=== PATIENT | female | born 1965 | race African-American/Black ===

== ENCOUNTER 2016-06-24 10:37 | Emergency (ER) | payer OTHER ==
[2016-06-24 10:43] VITALS: BMI 39.1
--- NOTE | 2016-06-24 10:47 | PDOC ---
History of Present Illness - General History Source: EMS, Old Records Exam Limitations: No Limitations - History of Present Illness Initial Comments: 06/24/16 10:49 The patient is a 50-year-old woman with a significant past medical history of seizures (on Lamictal and Depakote) who presents to the emergency department via EMS for further evaluation status post witnessed seizure event this morning. As per EMS, the patient had a witnessed seizure at work. Patient was noted to be hypertensive upon ER arrival (142/112). No tongue biting, bowel/bladder incontinence or head injury, as per EMS. Patient had a similar episode on 06/04/2015, for which she was evaluated, Head CT was (-). It appeared that at that time, the patient had several missed Neurological appointments and for which he Depakote was increased to 750 mg BID , however the patient was still taking the previous dosing. Allergies: Levetiracetam. Oxycodone. Penicillin. IV Contrast. Past Surgical History: Cardiac surgery x2. Social History: Former smoker. She denies ETOH and recreational drug use. Primary Care Physician: Dr. Aurora Willoughby Neurologist: Dr. Latonya Taylor [phone] (Affiliated with [facility]) <Umu Piña - Last Filed: 06/24/16 18:00> <Alexis Cain - Last Filed: 06/24/16 21:56> - General Chief Complaint: Seizure Stated Complaint: Seizure Time Seen by Provider: 06/24/16 10:47 Past History <Umu Piña - Last Filed: 06/24/16 18:00> - Past Medical History Diabetes: No HTN: No Kidney Stones: Yes Seizures: Yes - Surgical History Cardiac Surgery: Yes (x2) - Immunization History Immunization Up to Date: Yes - Psycho/Social/Smoking Cessation Hx Anxiety: No Suicidal Ideation: No Smoking Status: No Smoking History: Former smoker Have you smoked in the past 12 months: No Number of Cigarettes Smoked Daily: 0 Information on smoking cessation initiated: No Hx Alcohol Use: No Drug/Substance Use Hx: No Substance Use Type: None <Alexis Cain - Last Filed: 06/24/16 21:56> - Past Medical History Allergies/Adverse Reactions: Allergies Allergy/AdvReac Type Severity Reaction Status Date / Time levetiracetam [From Keppra] Allergy Verified 06/24/16 11:59 oxycodone HCl [From Percocet] Allergy Itching Verified 06/24/16 11:59 Penicillins Allergy Verified 06/24/16 11:59 iv contrast Allergy Hives Uncoded 06/24/16 11:59 Home Medications: Ambulatory Orders Lamotrigine [Lamictal] 250 mg PO BID 06/07/15 Lacosamide [Vimpat -] 150 mg PO BID 06/24/16 Review of Systems - Review of Systems Able to Perform ROS?: Yes Comments:: 06/24/16 10:49 GENERAL/CONSTITUTIONAL: No fever or chills. No weakness. NEUROLOGIC: Yes: +Witnessed seizure. No headache, vertigo, or change in strength /sensation. <Umu Piña - Last Filed: 06/24/16 18:00> *Physical Exam - Vital Signs Last Vital Signs Temp Pulse Resp BP Pulse Ox 98.7 F 78 22 142/112 98 06/24/16 10:41 06/24/16 10:41 06/24/16 10:41 06/24/16 10:41 06/24/16 10:41 - Physical Exam Comments: 06/24/16 10:50 GENERAL: Awake, alert, and fully oriented, in no acute distress HEAD: No signs of trauma EYES: PERRLA, EOMI, sclera anicteric, conjunctiva clear ENT: Auricles normal inspection, hearing grossly normal, nares patent, oropharynx clear without exudates. Moist mucosa NECK: Normal ROM, supple, no lymphadenopathy, JVD, or masses LUNGS: Breath sounds equal, clear to auscultation bilaterally. No wheezes, and no crackles HEART: Regular rate and rhythm, normal S1 and S2, no murmurs, rubs or gallops ABDOMEN: Soft, nontender, normoactive bowel sounds. No guarding, no rebound. No masses EXTREMITIES: Normal range of motion, no edema. No clubbing or cyanosis. No cords, erythema, or tenderness NEUROLOGICAL: Cranial nerves II through XII grossly intact. Normal speech <Umu Piña - Last Filed: 06/24/16 18:00> - Vital Signs Last Vital Signs Temp Pulse Resp BP Pulse Ox 98.7 F 78 22 142/112 98 06/24/16 10:41 06/24/16 10:41 06/24/16 10:41 06/24/16 10:41 06/24/16 10:41 <Alexis Cain - Last Filed: 06/24/16 21:56> ED Treatment Course - LABORATORY CBC & Chemistry Diagram: 06/24/16 12:18 06/24/16 12:18 - RADIOLOGY Radiograph Interpretation: 06/24/16 13:54 EXAM: RAD/CHEST X-RAY PORTABLE IMPRESSION: Comparison study May 19, 2014. The lungs are well aerated. No evidence of vascular congestion, pleural effusion, or pneumothorax. No widening of the superior mediastinum. The heart is borderline enlarged. Intact visualized osseous structures. Right cervical rib is noted. No glenohumeral joint dislocation is seen. EXAM: CT/HEAD CT WITHOUT CONTRAST IMPRESSION: Comparison study: CT brain January 21, 2016. Findings. Serial axial images of the brain were obtained from foramen magnum to the cranial vertex without intravenous contrast. The study was supplemented with computer- generated coronal and sagittal reconstruction images. Legislative Director image was reviewed. There is no evidence of acute subarachnoid hemorrhage, acute intra-axial or extra-axial fluid collection consistent with subdural or epidural hematoma. No mass effect, midline shift, acute territorial ischemic changes, herniation or edema is present. Normal celestin matter white matter differentiation. Normal CSF spaces. The cortical sulci, sylvian fissures, perimesencephalic cisterns are not effaced. No evidence of tonsillar ectopia. Examination of the bone windows show no fracture. Nonspecific mucosal changes are observed in few right ethmoid air cells. Symmetrical ocular globes. Status post cataract surgeries. Unremarkable retro-orbital soft tissues. <Umu Piña - Last Filed: 06/24/16 18:00> - LABORATORY CBC & Chemistry Diagram: 06/24/16 12:18 06/24/16 12:18 <Alexis Cain - Last Filed: 06/24/16 21:56> Medical Decision Making - Medical Decision Making 06/24/16 15:08 A call was placed to patient's Primary Care Physician, Dr. Aurora Willoughby at [phone]. Awaiting call back. 06/24/16 16:50 A second call was placed to patient's Primary Care Physician, Dr. Aurora Willoughby at [phone]. Awaiting call back. 06/24/16 16:51 A call was placed to patient's Neurologist, Dr. Latonya Taylor at [phone]. Awaiting call back. 06/24/16 17:11 A second call was placed to patient's Neurologist, Dr. Latonya Taylor at [phone]. Awaiting call back. 06/24/16 16:17 A third call was placed to patient's Primary Care Physician, Dr. Aurora Willoughby at [phone]. Awaiting call back. 06/24/16 16:35 Call back from Neurologist, Dr. Robles affiliated with [facility]. Case was discussed. Patient will be transferred to [facility] on an Epilepsy Monitoring Unit. 06/24/16 18:00 A call was placed to [facility] at ( ). <Umu Piña - Last Filed: 06/24/16 18:00> *DC/Admit/Observation/Transfer - Attestations Scribe Attestion: 06/24/16 11:02 Documentation prepared by Umu Piña, acting as medical records secretary for Alexis Cain MD. <Umu Piña - Last Filed: 06/24/16 18:00> - Discharge Dispostion Admit: No <Alexis Cain - Last Filed: 06/24/16 21:56> Diagnosis at time of Disposition: Intractable seizure disorder - Discharge Dispostion Disposition: TRANSFER ACUTE CARE/OTHER HOSP Condition at time of disposition: Stable - Referrals Referrals: Kali Willoughby MD [Primary Care Provider] -
[2016-06-24] MEDS ORDERED: SODIUM CHLORIDE 500 ML IV STA (10:49)
[2016-06-24] MEDS ORDERED: FOSPHENYTOIN SODIUM 1,000 MG in SODIUM CHLORIDE 100 ML IVPB ONE (10:51)
[2016-06-24 12:26] LABS: BASOPHIL 0.4 % (0-2.0); EOSINOPHIL 0.1 % (0-4.5); MCH 31.4 pg (25.7-33.7); MCHC 33.2 g/dl (32.0-36.0); MEAN CELL VOLUME 94.6 fl (80-96); MEAN PLT VOLUME 7.9 fl (7.5-11.1); NEUTROPHILS 75.5 % (42.8-82.8); PLATELET COUNT 372 K/MM3 (134-434); RDW 13.8 % (11.6-15.6)
[2016-06-24 12:54] LABS: ALBUMIN 3.7 g/dl (3.4-5.0); ALK PHOS 67 U/L (45-117); ANION GAP 9 (8-16); BILIRUBIN,TOTAL 0.3 mg/dL (0.2-1.0); CALCIUM 8.9 mg/dL (8.5-10.1); CO2 29 mmol/L (21-32); CREATININE 0.9 mg/dL (0.55-1.02); GLUCOSE,RANDOM 89 mg/dL (74-106); SGOT/AST 13 U/L (15-37); SGPT/ALT 19 U/L (12-78); TOT PROT 7.4 g/dl (6.4-8.2)
[2016-06-24] MEDS ORDERED: DIVALPROEX SODIUM 500 MG TABLET E.C. PO ONE (13:22)
[2016-06-24] MEDS ORDERED: ACETAMINOPHEN 325 MG TABLET (FP) PO ONE (13:27)
[2016-06-24] MEDS ORDERED: ACETAMINOPHEN 325 MG TABLET (FP) ONE (13:50)
--- NOTE | 2016-06-24 14:00 | EKG ---
Test Reason : Blood Pressure : / mmHG Vent. Rate : 067 BPM Atrial Rate : 067 BPM P-R Int : 174 ms QRS Dur : 086 ms QT Int : 408 ms P-R-T Axes : 052 041 013 degrees QTc Int : 431 ms NORMAL SINUS RHYTHM NORMAL ECG WHEN COMPARED WITH ECG OF 17-NOV-2013 21:28, NO SIGNIFICANT CHANGE WAS FOUND Confirmed by FAUSTINO JEREZ MD ([id number]) on 06/24/2016 1:59:41 PM Referred By: Confirmed By:FAUSTINO JEREZ MD
[2016-06-24 15:26] VITALS: PULSE 68
[2016-06-24] MEDS ORDERED: LACOSAMIDE 50 MG TABLET PO ONE ×2 (21:48→21:56)
[2016-06-25 00:22] VITALS: BP 130/70; TEMP 97.4
== END 2016-06-25 01:50 | disposition short-term general hospital (02) ==
LOC: JER 10:37
PROC: 3E033GC Introduction of Other Therapeutic Substance into Peripheral Vein, Percutaneous Approach (ICD-10-PCS; principal; 2016-06-24)
PROC: 3E0337Z Introduction of Electrolytic and Water Balance Substance into Peripheral Vein, Percutaneous Approach (ICD-10-PCS; 2016-06-24)
DX: G40.919 Epilepsy, unspecified, intractable, without status epilepticus (principal); I10 Essential (primary) hypertension; Z87.891 Personal history of nicotine dependence; Z87.442 Personal history of urinary calculi; I51.9 Heart disease, unspecified
CPT/HCPCS: 36415; 70450-TC; 71010-TC; 80053; 80164; 82550; 84703; 85025; 93005; 93010; 99285-25

== ENCOUNTER 2017-11-12 14:28 | Emergency (ER) | payer OTHER ==
[2017-11-12 14:42] VITALS: BP 163/78; PULSE 81; TEMP 98.2; BMI 50.1
--- NOTE | 2017-11-12 14:44 | PDOC ---
Rapid Medical Evaluation Chief Complaint: Edema Time Seen by Provider: 11/12/17 14:40 Medical Evaluation: Allergies Allergy/AdvReac Type Severity Reaction Status Date / Time levetiracetam [From Keppra] Allergy Verified 11/12/17 14:39 oxycodone HCl [From Percocet] Allergy Itching Verified 11/12/17 14:39 Penicillins Allergy Verified 11/12/17 14:39 iv contrast Allergy Hives Uncoded 11/12/17 14:39 11/12/17 14:41 I have performed a brief in-person evaluation of this patient. The patient presents with a chief complaint of: LLE pain x days, no cp, sob, palpitation, f/c. No trauma. H/o seizures, arthritis to hips/knees Pertinent physical exam findings:LLE swollen compared to RLE I have ordered the following: labs and US The patient will proceed to the ED for further evaluation Discharge Disposition - Diagnosis Leg swelling - Referrals - Patient Instructions - Post Discharge Activity
--- NOTE | 2017-11-12 15:28 | PDOC ---
History of Present Illness - General Chief Complaint: Edema Stated Complaint: SWELLING FOOT Time Seen by Provider: 11/12/17 14:40 History Source: Patient Exam Limitations: No Limitations - History of Present Illness Initial Comments: 11/12/17 15:31 This is a 51-year-old woman past medical history of seizures and osteoarthritis who presents emergency Department with left lower extremity swelling intermittent over the past 5 days. Patient states at times her leg swells progressively and becomes reddened but then spontaneously resolves. She states when the swelling comes she experiences pain which is localized to her calf. She denies any fevers, chills, shortness of breath, chest pain, dizziness. Past History - Past Medical History Allergies/Adverse Reactions: Allergies Allergy/AdvReac Type Severity Reaction Status Date / Time levetiracetam [From Keppra] Allergy Verified 11/12/17 14:39 oxycodone HCl [From Percocet] Allergy Itching Verified 11/12/17 14:39 Penicillins Allergy Verified 11/12/17 14:39 iv contrast Allergy Hives Uncoded 11/12/17 14:39 Home Medications: Ambulatory Orders Lamotrigine [Lamictal] 250 mg PO BID 06/07/15 Lacosamide [Vimpat -] 150 mg PO BID 06/24/16 LORazepam [Ativan] 1 mg PO DAILY PRN #5 tablet MDD 2 08/20/17 COPD: No Diabetes: No HTN: No Kidney Stones: Yes Seizures: Yes - Surgical History Cardiac Surgery: Yes (x2) Neurologic Surgery: (neuropace) - Immunization History Immunization Up to Date: Yes - Suicide/Smoking/Psychosocial Hx Smoking Status: No Smoking History: Never smoked Have you smoked in the past 12 months: No Number of Cigarettes Smoked Daily: 0 Information on smoking cessation initiated: No Hx Alcohol Use: No Drug/Substance Use Hx: No Substance Use Type: None Review of Systems - Review of Systems Able to Perform ROS?: Yes Is the patient limited Croatian proficient: No Constitutional: No: Symptoms Reported HEENTM: No: Symptoms Reported Respiratory: No: Symptoms reported Cardiac (ROS): Yes: See HPI ABD/GI: No: Symptoms Reported : No: Symptoms Reported Musculoskeletal: No: Symptoms Reported Integumentary: No: Symptoms Reported Neurological: No: Symptoms reported Endocrine: No: Symptoms Reported Hematologic/Lymphatic: No: Symptoms Reported *Physical Exam - Vital Signs Last Vital Signs Temp Pulse Resp BP Pulse Ox 98.2 F 81 18 163/78 99 11/12/17 14:39 11/12/17 14:39 11/12/17 14:39 11/12/17 14:39 11/12/17 14:39 - Physical Exam General Appearance: Yes: Appropriately Dressed. No: Apparent Distress Respiratory/Chest: positive: Lungs Clear, Normal Breath Sounds. negative: Respiratory Distress, Accessory Muscle Use Cardiovascular: positive: Regular Rhythm, Regular Rate, Edema (Dependent left lower extremity). negative: Murmur Vascular Pulses: Dorsalis-Pedis (R): 2+, Doralis-Pedis (L): 2+ Gastrointestinal/Abdominal: positive: Normal Bowel Sounds, Soft. negative: Tender Musculoskeletal: positive: Normal Inspection. negative: CVA Tenderness Extremity: positive: Pedal Edema (dependant left lower exrtemity) Integumentary: positive: Normal Color, Dry, Warm Neurologic: positive: Alert, Motor Strength 5/5 Medical Decision Making - Medical Decision Making 11/12/17 15:34 A/P: 51-year-old woman with atraumatic intermittent left lower extremity swelling for 5 days Dependent edema noted in the left lower extremity. 2+ dorsalis pedis pulses present bilaterally No calf tenderness or cords present Negative Homans sign Ultrasound, reassess Duplex Dopplers as read by Dr. Scruggs: No DVT is identified involving the left leg. There is no popliteal cyst. No obvious superficial thrombophlebitis is noted. I discussed the physical exam findings, ancillary test results and final diagnoses with the patient. I answered all of the patient's questions. The patient was satisfied with the care received and felt comfortable with the discharge plan and treatment plan. The patient will call her doctor within 96 hours to arrange follow-up and will return to the Emergency Department with any new, persistent or worsening symptoms. *DC/Admit/Observation/Transfer Diagnosis at time of Disposition: Dependent edema - Discharge Dispostion Disposition: HOME Condition at time of disposition: Stable Decision to Admit order: No - Referrals Referrals: Kali Willoughby MD [Primary Care Provider] - - Patient Instructions Additional Instructions: Keep affected leg elevated as much as possible. Make an appointment with your primary doctor for reevaluation within the next 7 days. Return to emergency department for worsening pain, fevers, chills, numbness or tingling to toes, discoloration of your toes or any other concerns. - Post Discharge Activity Forms/Work/School Notes: Back to Work
== END 2017-11-12 15:53 | disposition home or self-care (01) ==
LOC: JERFT 14:28
DX: R60.9 Edema, unspecified (principal); Z86.69 Personal history of other diseases of the nervous system and sense organs; M19.90 Unspecified osteoarthritis, unspecified site
CPT/HCPCS: 93971-TC; 99281-25

== ENCOUNTER 2017-12-11 05:45 | Emergency (ER) | payer OTHER ==
[2017-12-11 06:01] VITALS: BMI 49.9
[2017-12-11] MEDS ORDERED: SODIUM CHLORIDE 1,000 ML IV STA (06:04)
--- NOTE | 2017-12-11 06:11 | PDOC ---
History of Present Illness - General Chief Complaint: Pain Stated Complaint: SEIZURES Time Seen by Provider: 12/11/17 05:54 History Source: Patient Exam Limitations: Clinical Condition - History of Present Illness Initial Comments: 12/11/17 06:06 Patient is a 52F with history of seizures and psychogenic non-epileptic seizure here today complaining of a seizure. She is unsure of what happen, but her family reports to EMS that she had multiple "mini-seizures" today involving acting strangely, jerking arm movements. Family states that she takes lamictal, vimpat and has neuropace implant. EMS reports no tongue biting. Patient does have urinary incontinence. Patient gives fragmentary history but does endorse medication compliance. She endorses an associated headache. Neurologist is Latonya Taylor Past History - Past Medical History Allergies/Adverse Reactions: Allergies Allergy/AdvReac Type Severity Reaction Status Date / Time levetiracetam [From Keppra] Allergy Verified 12/11/17 05:57 oxycodone HCl [From Percocet] Allergy Itching Verified 12/11/17 05:57 Penicillins Allergy Verified 12/11/17 05:57 iv contrast Allergy Hives Uncoded 11/12/17 14:39 Home Medications: Ambulatory Orders Lamotrigine [Lamictal] 250 mg PO BID 06/07/15 Lacosamide [Vimpat -] 150 mg PO BID 06/24/16 LORazepam [Ativan] 1 mg PO DAILY PRN #5 tablet MDD 2 08/20/17 COPD: No Diabetes: No HTN: No Kidney Stones: Yes Seizures: Yes (Epileptic) - Surgical History Cardiac Surgery: Yes (x 2) Neurologic Surgery: Yes (neuropace ([place])) - Immunization History Immunization Up to Date: Yes - Suicide/Smoking/Psychosocial Hx Smoking Status: No Smoking History: Never smoked Have you smoked in the past 12 months: No Number of Cigarettes Smoked Daily: 0 Information on smoking cessation initiated: No Hx Alcohol Use: No Drug/Substance Use Hx: No Substance Use Type: None Review of Systems - Review of Systems Comments:: 12/11/17 06:15 GENERAL/CONSTITUTIONAL: No fever or chills. No weakness. HEAD, EYES, EARS, NOSE AND THROAT: No change in vision. No sore throat. CARDIOVASCULAR: No chest pain or shortness of breath RESPIRATORY: No cough, wheezing, or hemoptysis. GASTROINTESTINAL: No nausea, vomiting, diarrhea or constipation. GENITOURINARY: No dysuria, frequency, or change in urination. MUSCULOSKELETAL: No joint or muscle swelling or pain. No neck or back pain. SKIN: No rash NEUROLOGIC: +headache. No vertigo or change in strength/sensation. ENDOCRINE: No increased thirst. No abnormal weight change HEMATOLOGIC/LYMPHATIC: No anemia, easy bleeding, or history of blood clots. ALLERGIC/IMMUNOLOGIC: No hives or skin allergy. *Physical Exam - Vital Signs Last Vital Signs Temp Pulse Resp BP Pulse Ox 98.4 F 78 20 136/120 98 12/11/17 05:57 12/11/17 05:57 12/11/17 05:57 12/11/17 05:57 12/11/17 05:57 - Physical Exam Comments: 12/11/17 06:21 GENERAL: Awake, alert, and fully oriented HEAD: No signs of trauma, normocephalic, atraumatic EYES: PERRLA, EOMI, sclera anicteric, conjunctiva clear ENT: Auricles normal inspection, hearing grossly normal, nares patent, oropharynx clear without exudates. Moist mucosa NECK: Normal ROM, supple, no lymphadenopathy, JVD, or masses LUNGS: No distress, speaks full sentences, clear to auscultation bilaterally HEART: Regular rate and rhythm, normal S1 and S2, no murmurs, rubs or gallops, peripheral pulses normal and equal bilaterally. ABDOMEN: Soft, nontender, normoactive bowel sounds. No guarding, no rebound. No masses EXTREMITIES: Normal inspection, Normal range of motion, no edema. No clubbing or cyanosis. NEUROLOGICAL: Cranial nerves II through XII grossly intact. Normal speech, no focal sensorimotor deficits SKIN: Warm, Dry, normal turgor, no rashes or lesions noted. 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 Tearful on exam. Vital signs normal and stable. Normal neuro exam. Will treat with 2mg of ativan. Will evaluate with cbc, cmp. Will sign out to day team. 12/11/17 06:34 EKG shows normal sinus rhythm with rate of 71. No st elevations/depressions. Normal t wave inversions. Normal intervals. Normal axis. 12/11/17 07:[address] Vuong. *DC/Admit/Observation/Transfer Diagnosis at time of Disposition: Seizure - Discharge Dispostion Condition at time of disposition: Stable - Referrals - Patient Instructions - Post Discharge Activity
[2017-12-11] MEDS ORDERED: LORazepam 2 MG/ML SDV VIAL ONE (06:15)
--- NOTE | 2017-12-11 06:19 | PDOC ---
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 Frequent seizures, states last episode of seizures was approx 1 month ago. Pt is tearful and upset, just states that she "doesn't feel well." - labs - ekg - cxr - ativan - reeval. <Cary Jackson - Last Filed: 12/11/17 06:16> - HPI HPI: 12/11/17 07:12 Patient is a 52 year old female with a significant past medical history of seizures and psychogenic non-epileptic seizure, who presents to the ED with complaints of seizure that occurs just prior to ED arrival. As per EMS patient was unaware of what happened, stating her family reported she had multiple mini seizures. EMS reports patient family stated patient is currently taking vimpat, lamictal and has a neuropace implant. Patient reports experiencing associated anxiety, nervousness, head pain and bilateral leg. She reports feeling as if she is going to have another seizure any minute. Denies chest pain, Sob. Denies nausea, vomiting. Denies contact with sick individuals, out of state travelling. Denies head trauma. Denies diarrhea, constipation. Denies any other symptoms. Allergies: levetiracetam, oxycodone HCl,Penicillins ,iv contrast Social history: No smoking. No alcohol. No illicit drugs Surgical history: neuropace ([place]). PMD: None - Physicial Exam PE: 12/11/17 07:12 General Physical Exam: NAD EOMI, NU MMM, OP WNL NCAT, no midline cervical tenderness RRR, nl s1/s2, no m/r/g CTABL, no w/r/r Soft, NTND No edema, WWP, no rash Neuro grossly intact, gait WNL, moving all 4 A&O x 3, mood/affect WNL. <Ted Miramontes - Last Filed: 12/11/17 07:12>
--- NOTE | 2017-12-11 07:03 | PDOC ---
*Physical Exam - Vital Signs Last Vital Signs Temp Pulse Resp BP Pulse Ox 98.4 F 78 20 136/120 98 12/11/17 05:57 12/11/17 05:57 12/11/17 05:57 12/11/17 05:57 12/11/17 05:57 12/11/17 07:01 Patient's care endorsed to me by Dr. Hendrix at the end of his shift. Patient is a 52 YOF with h/o seizures and pseudoseizures, EMS reports patient acting strangely on scene, family reported small jerking movements of arms, acting altered. Had urinary incontinence. Here she was tearful and upset, given 2 mg Ativan. Sees a neurologist at [facility]. States she is adherent to meds, also has neuro paced implant. Pending labs and reassessment then may be able to go home. ED Treatment Course - LABORATORY CBC & Chemistry Diagram: 12/11/17 06:20 12/11/17 06:20 - Medications Given in the ED: ED Medications Discontinued Medications Generic Name Dose Route Start Last Admin Trade Name Javier PRN Reason Stop Dose Admin Lorazepam 2 mg 12/11/17 06:09 12/11/17 06:33 Ativan Injection - IVPUSH 12/11/17 06:10 2 mg ONCE ONE Administration Medical Decision Making - Medical Decision Making 12/11/17 08:43 Patient feels much better, states only symptom now is she is tired. She will be able to f/u with her neurology team at [facility] in 3 days. She requests 3 days of Lamictal 1 mg as she has run out. 1 week Lamictal is E-Rx to patient's pharmacy. She is given 3 days off work. Taxi is called for the patient. Return precautions discussed. *DC/Admit/Observation/Transfer Diagnosis at time of Disposition: Seizure Qualifiers: Convulsion type: unspecified Qualified Code(s): R56.9 - Unspecified convulsions - Discharge Dispostion Disposition: HOME Condition at time of disposition: Stable Decision to Admit order: No - Prescriptions Prescriptions: Lamotrigine [Lamictal] 200 mg PO DAILY #7 tablet - Referrals Referrals: [facility] [place] [Provider Group] - Patient Instructions Printed Discharge Instructions: DI for Seizure Disorder -- Adult Additional Instructions: You were seen in the ER for an apparent seizure. We did laboratory work and everything appeared normal. After our assessment, we do not believe you are having a medical emergency at this time, and we believe you are safe to go home. Please follow up with your neurology team at [facility] in 3 days, and with you regular PCP doctor in 1-3 days. We are giving you referral information for our primary care clinic in case you need a new provider. Call their clinic as soon as possible, tell them you were seen in the ER, and tell them you need an appointment. Please supervisor compounding and finishing your prescription for Lamictal at your pharmacy and take it as directed. If you have any new or worsening symptoms, especially change in your normal seizures, severe headache, weakness/numbness/tingling of one part of your body, or other symptoms, please come back to the ER at any time (24 hours a day). If you are having severe or life threatening symptoms, please call 911[address] - Post Discharge Activity Forms/Work/School Notes: Back to Work
[2017-12-11 07:10] LABS: HEMATOCRIT 36.1 % (32.4-45.2); HEMOGLOBIN 12.3 GM/dL (10.7-15.3); MCH 31.9 pg (25.7-33.7); MEAN CELL VOLUME 93.7 fl (80-96); MEAN PLT VOLUME 7.9 fl (7.5-11.1); PLATELET COUNT 372 K/MM3 (134-434); RBC 3.85 M/mm3 (3.60-5.2); RDW 13.7 % (11.6-15.6); WHITE BLOOD COUNT 8.1 K/mm3 (4.0-10.0)
[2017-12-11 07:45] LABS: ALBUMIN 3.5 g/dl (3.4-5.0); ANION GAP 7 (8-16); BILIRUBIN,TOTAL 0.2 mg/dL (0.2-1.0); BLOOD UREA NITROGEN 16 mg/dL (7-18); CALCIUM 8.5 mg/dL (8.5-10.1); CHLORIDE 105 mmol/L (98-107); CO2 26 mmol/L (21-32); CREATININE 0.7 mg/dL (0.55-1.02); GLUCOSE,RANDOM 105 mg/dL (74-106); POTASSIUM 4.2 mmol/L (3.5-5.1); SGOT/AST 13 U/L (15-37); SGPT/ALT 19 U/L (12-78); SODIUM 138 mmol/L (136-145); TOT PROT 7.4 g/dl (6.4-8.2)
[2017-12-11 07:46] LABS: ALK PHOS 65 U/L (45-117)
[2017-12-11 09:15] VITALS: BP 141/97; PULSE 74; TEMP 98.6
--- NOTE | 2017-12-13 21:55 | EKG ---
Test Reason : Blood Pressure : / mmHG Vent. Rate : 071 BPM Atrial Rate : 071 BPM P-R Int : 182 ms QRS Dur : 090 ms QT Int : 390 ms P-R-T Axes : 060 052 020 degrees QTc Int : 423 ms NORMAL SINUS RHYTHM POSSIBLE LEFT ATRIAL ENLARGEMENT BORDERLINE ECG WHEN COMPARED WITH ECG OF 24-JUN-2016 11:01, T WAVE INVERSION NOW EVIDENT IN ANTERIOR LEADS Confirmed by DEYA KEBEDE, VIOLET ([id number]) on 12/13/2017 9:54:59 PM Referred By: Confirmed By:VIOLET FALK MD
== END 2017-12-11 09:23 | disposition home or self-care (01) ==
LOC: JER 05:45
PROC: 3E033NZ Introduction of Analgesics, Hypnotics, Sedatives into Peripheral Vein, Percutaneous Approach (ICD-10-PCS; principal; 2017-12-11)
DX: G40.909 Epilepsy, unspecified, not intractable, without status epilepticus (principal)
CPT/HCPCS: 36415; 80053; 83605; 85027; 93005; 93010; 99283-25; J7030

== ENCOUNTER 2018-05-07 02:55 | Inpatient (IN) | payer OTHER ==
--- NOTE | 2018-05-07 02:56 | PDOC ---
Attending Attestation - Resident Resident Name: Shayla Chowdhury - ED Attending Attestation I have performed the following: I have examined & evaluated the patient, The case was reviewed & discussed with the resident, I agree w/resident's findings & plan - HPI HPI: 05/08/18 23:02 Pt comes with breakthrough seizures. - Physicial Exam PE: 05/08/18 23:02 Agree with resident exam - Medical Decision Making 05/07/18 02:59 Pt had a seizure and she is having an aura in the ER. 05/07/18 04:17 Patient Name: KASSIDY TOM THIS IS A PRELIMINARY REPORT FROM [facility] DATE OF SERVICE: 2018-05-07 03:36:48 IMAGES: 143 EXAM: HEAD CT WITHOUT CONTRAST HISTORY: Seizure COMPARISON: None. FINDINGS: Posterior left parietal and left temporal intracranial stimulators are noted with electrodes causing prominent streak artifact. The ventricular system is midline and nondilated. The sulcal pattern is normal for the patient's age. There is no bleed, mass, extra- axial fluid collection or mass effect. No skull fracture or skull lesion is identified. The visualized paranasal sinuses and mastoid air cells are clear. IMPRESSION: No acute pathology. THIS DOCUMENT HAS BEEN ELECTRONICALLY SIGNED 05/08/18 23:02 Admit for evaluation
[2018-05-07 02:59] VITALS: BMI 46.5
[2018-05-07] MEDS ORDERED: LORazepam 2 MG/ML SDV VIAL ONE (02:59)
--- NOTE | 2018-05-07 02:59 | PDOC ---
History of Present Illness - General Chief Complaint: Seizure Stated Complaint: SEIZURE Time Seen by Provider: 05/07/18 02:56 History Source: Patient Exam Limitations: No Limitations - History of Present Illness Initial Comments: 05/07/18 03:42 This is a 52 year old female with a history of epilepsy, grand mal seizures, s/ p neuropace procedure, obesity who was BIBA due to witnessed seizure at home while in bed. EMS states grandson heard a noise and saw grandmother having a seizure. Length of time unknown, no tongue biting, loss of bowel or bladder, bodily injury, head injury, coppola, blurry vision, chest pain, sob, leg swelling. Patients states she has grand mal seizures with aura. She can feel when a seizure is coming on. She is aaox3, feeling tired. Her last seizure was last month. She [place] a neurologist in the city who she follows regularly, medications have not been changed. Patient states she worked a double shift and was tired, which provokes her seizures. PMHx: breast CA, epilepsy Social: denies tobacco /alcohol /drug use Allergies: keppra (rxn agitation?) oxycodone hcl, penicillins Past History - Past Medical History Allergies/Adverse Reactions: Allergies Allergy/AdvReac Type Severity Reaction Status Date / Time levetiracetam [From Keppra] Allergy Verified 05/07/18 02:56 oxycodone HCl [From Percocet] Allergy Itching Verified 05/07/18 02:56 Penicillins Allergy Verified 05/07/18 02:56 iv contrast Allergy Unknown Hives Uncoded 05/07/18 03:28 Home Medications: Ambulatory Orders Lamotrigine [Lamictal] 200 mg PO DAILY 06/07/15 Lacosamide [Vimpat -] 150 mg PO DAILY 06/24/16 LORazepam [Ativan] 0.5 mg PO DAILY #2 tablet MDD 1 12/11/17 Lamotrigine [Lamictal] 200 mg PO DAILY #7 tablet 12/11/17 COPD: No Diabetes: No HTN: No Kidney Stones: Yes Seizures: Yes (Epileptic) - Surgical History Cardiac Surgery: Yes (x 2) Neurologic Surgery: Yes (neuropace ([facility]utz)) - Immunization History Immunization Up to Date: Yes - Suicide/Smoking/Psychosocial Hx Smoking Status: No Smoking History: Never smoked Have you smoked in the past 12 months: No Number of Cigarettes Smoked Daily: 0 Information on smoking cessation initiated: No Hx Alcohol Use: No Drug/Substance Use Hx: No Substance Use Type: None Review of Systems - Review of Systems Able to Perform ROS?: Yes Constitutional: No: Chills, Fever HEENTM: No: Blurred Vision Respiratory: No: Cough, Orthopnea, Shortness of Breath, Productive cough Cardiac (ROS): No: Chest Pain, Edema, Irregular Heart Rate, Lightheadedness, Syncope ABD/GI: No: Abdominal Distended Musculoskeletal: No: Back Pain, Joint Pain Neurological: Yes: Seizure, Weakness. No: Headache, Numbness, Paresthesia Hematologic/Lymphatic: No: Anemia *Physical Exam - Vital Signs Last Vital Signs Temp Pulse Resp BP Pulse Ox 97.7 F 87 18 147/107 H 97 05/07/18 02:57 05/07/18 02:57 05/07/18 02:57 05/07/18 02:57 05/07/18 02:57 - Physical Exam General Appearance: Yes: Other (mild lethargy) Respiratory/Chest: positive: Lungs Clear, Normal Breath Sounds. negative: Accessory Muscle Use Cardiovascular: positive: Regular Rhythm, Regular Rate, S1, S2 Gastrointestinal/Abdominal: positive: Normal Bowel Sounds Musculoskeletal: positive: Normal Inspection Extremity: positive: Pedal Edema (trace b/l), Other (right UE , skin flare of hives around area of turniacte). 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 negative: Sensory Deficit Medical Decision Making - Medical Decision Making 05/07/18 04:04 This is a 52 year old female with a history of epilepsy , s/p neuropace procedure >1year ago, on AE, take medications regularly, who presents with seizure. #seizure -cbc, bmp, ecg -ativan 2mg IM -IV access -load AE -head CT r.o acute pathology #hypertensive: -1x diovan 40mg po -Case discussed with hospitalist admit for observation; 05/07/18 04:15 *DC/Admit/Observation/Transfer Diagnosis at time of Disposition: Seizure - Discharge Dispostion Condition at time of disposition: Fair Decision to Admit order: Yes - Referrals - Patient Instructions - Post Discharge Activity
[2018-05-07] MEDS ORDERED: VALSARTAN 40 MG TABLET (FP) PO ONE (03:40)
[2018-05-07] MEDS ORDERED: VALSARTAN 80 MG TABLET (UD) ONE (03:44)
[2018-05-07] MEDS ORDERED: diphenhydrAMINE HCL 25 MG CAPSULE (FP) PO ONE ×2 (04:39→04:44)
[2018-05-07] MEDS ORDERED: LACTATED RINGERS SOLUTION 1,000 ML IV SCH (04:45)
[2018-05-07 04:51] LABS: BASO % 0.6 % (0-2.0); EOS % 0.4 % (0-4.5); HEMATOCRIT 39.4 % (32.4-45.2); LYMPH % 12.1 % (8-40); MEAN CELL VOLUME 94.1 fl (80-96); MEAN PLT VOLUME 8.1 fl (7.5-11.1); MONO % 7.3 % (3.8-10.2); NEUT % 79.6 % (42.8-82.8); PLATELET COUNT 405 K/MM3 (134-434); RBC 4.19 M/mm3 (3.60-5.2); RDW 13.6 % (11.6-15.6); WHITE BLOOD COUNT 9.4 K/mm3 (4.0-10.0)
--- NOTE | 2018-05-07 05:31 | HP ---
CHIEF COMPLAINT: seizure HISTORY OF PRESENT ILLNESS: 52 year old female with a history of epilepsy, multiple grand mal seizures, and neuropace procedure was brought to the hospital by EMS for unwitnessed seizure in bed and urinary incontinence during the event. Patient's grandson noticed the seizure and was able to contact EMS. Patient reports mild headache but otherwise denies complaints. Reports that she knew that the seizure was coming on and remembers waking up and feeling confused, but does not recall the actual event. States that she was held at work for a second shift, which she says triggers her seizures. Reports that lack of sleep usually triggers seizures for her. Reports that she started to have seizures in 2010 and has had 10-15 seizures every year since. She has had a neuropace stimulator implanted into her brain at [facility] and is followed by neurologist Dr. Nieves ER course was notable for: (1) EKG NSR rate 80, qtc 452 (2) CXR normal (3) Recent Travel: denies PAST MEDICAL HISTORY: epilepsy PAST SURGICAL HISTORY: neural stimulator, 2 c sections Social History: Smoking: No smoking Alcohol: No alcohol use Drugs: No drug use Family History: cancer in the family of unknown type Allergies levetiracetam [From Keppra] Allergy (Verified 05/07/18 02:56) oxycodone HCl [From Percocet] Allergy (Verified 05/07/18 02:56) Itching Penicillins Allergy (Verified 05/07/18 02:56) iv contrast Allergy (Unknown, Uncoded 05/07/18 03:28) Hives HOME MEDICATIONS: Home Medications Medication Instructions Recorded Lacosamide [Vimpat -] 200 mg PO BID 06/24/16 Lamotrigine [Lamictal] 200 mg PO BID 05/07/18 Lorazepam [Lorazepam Intensol] 2 mg PO DAILY PRN 05/07/18 REVIEW OF SYSTEMS CONSTITUTIONAL: Absent: fever, chills, diaphoresis, generalized weakness, malaise, loss of appetite, weight change HEENT: Absent: rhinorrhea, nasal congestion, throat pain, throat swelling, difficulty swallowing, mouth swelling, ear pain, eye pain, visual changes CARDIOVASCULAR: Absent: chest pain, syncope, palpitations, irregular heart rate, lightheadedness , peripheral edema RESPIRATORY: Absent: cough, shortness of breath, dyspnea with exertion, orthopnea, wheezing, stridor, hemoptysis GASTROINTESTINAL: Absent: abdominal pain, abdominal distension, nausea, vomiting, diarrhea, constipation, melena, hematochezia GENITOURINARY: Absent: dysuria, frequency, urgency, hesitancy, hematuria, flank pain, genital pain MUSCULOSKELETAL: Absent: myalgia, arthralgia, joint swelling, back pain, neck pain SKIN: Absent: rash, itching, pallor HEMATOLOGIC/IMMUNOLOGIC: Absent: easy bleeding, easy bruising, lymphadenopathy, frequent infections ENDOCRINE: Absent: unexplained weight gain, unexplained weight loss, heat intolerance, cold intolerance NEUROLOGIC: seizure, Absent: headache, focal weakness or paresthesias, dizziness, unsteady gait, mental status changes, bladder or bowel incontinence PSYCHIATRIC: Absent: anxiety, depression, suicidal or homicidal ideation, hallucinations. PHYSICAL EXAMINATION Vital Signs - 24 hr 05/07/18 05/07/18 02:57 03:36 Temperature 97.7 F Pulse Rate 87 Respiratory 18 Rate Blood Pressure 147/107 H O2 Sat by Pulse 97 99 Oximetry (%) GENERAL: A&Ox3, no acute distress EYES: PERRLA, EOMI ENT: Moist mucus membranes NECK: No JVD LUNGS: CTA, no wheezes HEART: RRR, no murmurs ABDOMEN: Obese, Soft, nontender, BS present MUSCULOSKELETAL: No CVA Tenderness EXTREMITIES: 2+ pulses, no edema. maculopapular rash noted on LUE around 6x8cm on anterior aspet of forearm NEUROLOGICAL: Cranial nerves II-XII intact. Motor strength 5/5, sensation intact, reflexes 2/4 b/l upper and lower extremities Laboratory Results - last 24 hr 05/07/18 05/07/18 04:25 04:25 WBC 9.4 RBC 4.19 Hgb 13.0 Hct 39.4 MCV 94.1 MCH 31.0 MCHC 33.0 RDW 13.6 Plt Count 405 MPV 8.1 Absolute Neuts (auto) 7.5 Neutrophils % 79.6 Lymphocytes % 12.1 D Monocytes % 7.3 Eosinophils % 0.4 D Basophils % 0.6 Nucleated RBC % 0 Lactic Acid 1.1 ASSESSMENT/PLAN: 52 year old female with a history of epilepsy, multiple grand mal seizures, and neuropace procedure was brought to the hospital by EMS for unwitnessed seizure in bed. #Seizure: recurrent, home neurologist is Dr. Nieves -head CT does not preliminarily reveal any acute abnormality or stroke, pending final read -CXR negative -continue home lamictal 200 BID -continue home vimpat 200 BID -patient allergic to keppra, started fosphenytoin 1000 -neurology Dr. Blake consulted #Hypertension: patient denies being on other medications -monitor BP in AM #FEN -LR @ 83cc/hr 1 bag -lytes normal -regular diet #Prophylaxis -lovenox #Disposition -admit obs Visit type - Emergency Visit Emergency Visit: Yes ED Registration Date: 05/07/18 Care time: The patient presented to the Emergency Department on the above date and was hospitalized for further evaluation of their emergent condition. - New Patient This patient is new to me today: Yes Date on this admission: 05/07/18 - Critical Care Critical Care patient: No
[2018-05-07 05:36] LABS: ALBUMIN 3.5 g/dl (3.4-5.0); ALK PHOS 72 U/L (45-117); ANION GAP 10 MMOL/L (8-16); BILIRUBIN,TOTAL 0.4 mg/dL (0.2-1); BLOOD UREA NITROGEN 15 mg/dL (7-18); CALCIUM 8.7 mg/dL (8.5-10.1); CHLORIDE 106 mmol/L (98-107); CO2 24 mmol/L (21-32); CREATININE 0.7 mg/dL (0.55-1.3); GLUCOSE,RANDOM 92 mg/dL (74-106); MAGNESIUM 1.9 mg/dL (1.8-2.4); POTASSIUM 4.1 mmol/L (3.5-5.1); SGOT/AST 17 U/L (15-37); SGPT/ALT 19 U/L (13-61); SODIUM 140 mmol/L (136-145)
[2018-05-07] MEDS ORDERED: FOSPHENYTOIN SODIUM 1,000 MG in SODIUM CHLORIDE 100 ML IVPB ONE (05:46)
--- NOTE | 2018-05-07 07:06 | PN ---
Teaching Attending Note Name of Resident: Nino William ATTENDING PHYSICIAN STATEMENT I saw and evaluated the patient. Chart, data, imaging reviewed. I reviewed the resident's note and discussed the case with the resident. I agree with the resident's findings and plan as documented. SUBJECTIVE: 52 year old female with a history of epilepsy, multiple grand mal seizures, and neuro stimulator placement was brought to the hospital by EMS for unwitnessed seizure in bed and urinary incontinence during the event. Patient's grandson noticed the seizure and was able to contact EMS. Patient reports mild headache. Thinks that lack of sleep may have triggered seizure episode. OBJECTIVE: Last Vital Signs Temp Pulse Resp BP Pulse Ox 97.7 F 80 20 138/92 98 05/07/18 02:57 05/07/18 06:12 05/07/18 06:12 05/07/18 06:12 05/07/18 06:12 General- nad, aaox3 heent- atraumatic, NC neck supple cv- s1+S2+ rrr chest clear abd- obese, nt ext- no edema Head CT, CXR- reviewed ASSESSMENT AND PLAN: 52yo woman with breakthrough seizure -observation -1 load 1 g fosphenytoin -restart home AEDs -neuro consult -neuro checks q4hrs -bed rest -check levels of Vimpat and Lamictal -fall precautions heparin sc for dvt ppx
[2018-05-07] MEDS ORDERED: PT OWN MED DRAWER 7, Y5N ONE (10:46)
[2018-05-07] MEDS: LACOSAMIDE 50 MG TABLET PO SCH ×2 (10:50→22:26)
[2018-05-07] MEDS: ENOXAPARIN NA (PORCINE) 40 MG/0.4 ML DISP.SYRIN SQ SCH (10:51)
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
[2018-05-07] MEDS ORDERED: diphenhydrAMINE HCL 25 MG CAPSULE (FP) PO PRN (11:12)
[2018-05-07] MEDS: lamoTRIgine 100 MG TABLET (FP) PO SCH ×2 (11:43→22:52)
--- NOTE | 2018-05-07 12:56 | CON.NEURO ---
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 - Past Surgical History Past Surgical History: Yes: - Alcohol/Substance Use Hx Alcohol Use: No History of Substance Use: reports: None - Smoking History Smoking history: Never smoked Have you smoked in the past 12 months: No Aproximately how many cigarettes per day: 0 - Social History ADL: Independent 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 Home Medications - Allergies Allergies/Adverse Reactions: Allergies Allergy/AdvReac Type Severity Reaction Status Date / Time levetiracetam [From Keppra] Allergy Verified 05/07/18 02:56 oxycodone HCl [From Percocet] Allergy Itching Verified 05/07/18 02:56 Penicillins Allergy Verified 05/07/18 02:56 iv contrast Allergy Unknown Hives Uncoded 05/07/18 03:28 - Home Medications Home Medications: Ambulatory Orders Lacosamide [Vimpat -] 200 mg PO BID 06/24/16 Lamotrigine [Lamictal] 200 mg PO BID 05/07/18 Lorazepam [Lorazepam Intensol] 2 mg PO DAILY PRN 05/07/18 Family Disease History - Family Disease History Family Disease History: CA: Mother (Breast CA) Review of Systems - Review of Systems Constitutional: reports: No Symptoms Eyes: reports: No Symptoms Physical Exam-Neuro Vital Signs: Vital Signs Temperature 98 F 05/07/18 08:57 Pulse Rate 57 L 05/07/18 08:57 Respiratory Rate 18 05/07/18 08:57 Blood Pressure 123/63 05/07/18 08:57 O2 Sat by Pulse Oximetry (%) 98 05/07/18 06:12 Constitutional: Yes: Well Nourished Neck: Yes: WNL Labs: CBC, BMP 05/07/18 04:25 05/07/18 04:25 - Neuro Exam Eyes: Yes: PERRLA Speech: WNL Dominant Hand: Right Cranial Nerves II-XII Intact: Yes Gag: Present DTR's: 1+ Left Bicep, 1+ Right Bicep, 1+ Left Brachioradialis, 1+ Right Brachioradialis Babinski: Absent Response to light touch: Normal Response to pain prick: Normal Response to temperature: Normal Response to vibration: Normal Motor Strength: 3/5: Left Arm, Right Arm, Left Leg, Right Leg Gait: Deferred Imaging - Results Cat Scan: Report Reviewed Problem List - Problems (1) Seizure Assessment/Plan: Complex partial Seizure Not controlled with frequent partial Petit mals and two Antiseizure meds and Neuropace 1. Move to monitored setting 2. seizure precautions 3. Put a call to her neurologist at [place] 4. No Keppra no Dilantin 5. Increase Lamictal to 200-100-200 6. Follow up levels Thank you for the kind referral Code(s): R56.9 - UNSPECIFIED CONVULSIONS
[2018-05-07] MEDS ORDERED: lamoTRIgine 100 MG TABLET (FP) PO ONE (15:00)
--- NOTE | 2018-05-07 15:22 | EKG ---
Test Reason : Blood Pressure : / mmHG Vent. Rate : 080 BPM Atrial Rate : 080 BPM P-R Int : 166 ms QRS Dur : 080 ms QT Int : 392 ms P-R-T Axes : 053 033 027 degrees QTc Int : 452 ms NORMAL SINUS RHYTHM NORMAL ECG WHEN COMPARED WITH ECG OF 11-DEC-2017 06:31, T WAVE INVERSION NO LONGER EVIDENT IN ANTERIOR LEADS Confirmed by Rodolfo Ram ([id number]) on 05/07/2018 3:22:06 PM Referred By: Confirmed By:Rodolfo Ram
[2018-05-07 18:46] LABS: URINE APPEARANCE CLEAR; URINE BILIRUBIN NEGATIVE (<2.0 mg/dL); URINE COLOR YELLOW; URINE GLUCOSE (UA) NEGATIVE (NEGATIVE); URINE KETONE NEGATIVE (NEGATIVE); URINE LEUK ESTERASE TRACE (NEGATIVE); URINE NITRITE NEGATIVE (NEGATIVE); URINE PROTEIN NEGATIVE (NEGATIVE)
[2018-05-07 18:47] LABS: EPI CELLS RARE /HPF (FEW); URINE MUCUS MODERATE
[2018-05-07] MEDS ORDERED: LORazepam 1 MG TABLET PO ONE (20:15)
[2018-05-07] MEDS ORDERED: LORazepam 1 MG TABLET PO PRN (22:44)
--- NOTE | 2018-05-07 22:52 | PN ---
Progress Note (short form) - Note Progress Note: Call by the registered nurse on the telemetric floor that the patient had a partial seizure that develop into right arm shaking. The episode stopped by itself. Patient was given Ativan 2 mg PO times one. I called a registered nurse at 10 PM to check on the patient and was told that she feels better. I again called the primer press operator who connected me to the patients room directly and I spoke to the patient who told me that she still not feeling good. Patient expresses to me that she still feeling Aura. I put an order for additional lorazepam PO and theres a standing those for Iv. I put an order for additional lorazepam PO and there is a standing those for IV. I also started a patient on Zonegram 100 mg daily. .I spoke to the epilepsy clinic with Jonathon and unfortunately a fellow called me Who doesnt know the patients with covering for the attending. Problem List - Problems (1) Seizure Code(s): R56.9 - UNSPECIFIED CONVULSIONS
[2018-05-08 07:24] LABS: BASO % 0.6 % (0-2.0); EOS % 1.4 % (0-4.5); HEMATOCRIT 36.6 % (32.4-45.2); HEMOGLOBIN 11.9 GM/dL (10.7-15.3); LYMPH % 28.1 % (8-40); MCHC 32.6 g/dl (32.0-36.0); MEAN PLT VOLUME 8.2 fl (7.5-11.1); MONO % 9.6 % (3.8-10.2); NEUT % 60.3 % (42.8-82.8); PLATELET COUNT 376 K/MM3 (134-434); RBC 3.85 M/mm3 (3.60-5.2); WHITE BLOOD COUNT 7.4 K/mm3 (4.0-10.0)
[2018-05-08 07:52] LABS: ANION GAP 9 MMOL/L (8-16); BLOOD UREA NITROGEN 11 mg/dL (7-18); CALCIUM 8.6 mg/dL (8.5-10.1); CHLORIDE 104 mmol/L (98-107); CO2 25 mmol/L (21-32); CREATININE 0.7 mg/dL (0.55-1.3); GLUCOSE,RANDOM 78 mg/dL (74-106); SODIUM 138 mmol/L (136-145)
--- NOTE | 2018-05-08 07:58 | PN ---
Physical Exam: SUBJECTIVE: Patient seen and examined at bedside. No overnight events. No new complaints. Continues to have R forearm puritis. 2 seizures yesterday. Denies Auro, CP, HERR, SOB, abdominal pain, nausea or vomiting. OBJECTIVE: Vital Signs Period Temp Pulse Resp BP Sys/Jeronimo Pulse Ox Last 24 Hr 98 F-98.5 F 57-81 15-20 115-154/62-88 100-100 GENERAL: awake alert, NAD EYES: PERRL, EOMI, sclera anicteric, conjunctiva clear. No ptosis. ENT: moist mucous membranes. LUNGS: CTAB no wheezes, no crackles, no accessory muscle use. HEART:RRR, S1, S2 without murmur, rub or gallop. ABDOMEN: Soft, NDNT, NABS, no guarding, no rebound, no hepatosplenomegaly, no masses. EXTREMITIES: 2+ pulses, warm, well-perfused, no edema. NEUROLOGICAL: Cranial nerves II through XII grossly intact. Normal speech, gait not observed. PSYCH: Normal mood, normal affect. SKIN: R forearm with tiny bumps with surrounding erythema, some excoriations Laboratory Results - last 24 hr 05/07/18 05/08/18 05/08/18 16:30 05:30 05:30 WBC 7.4 RBC 3.85 Hgb 11.9 Hct 36.6 MCV 95.0 MCH 31.0 MCHC 32.6 RDW 14.0 Plt Count 376 MPV 8.2 Absolute Neuts (auto) 4.5 Neutrophils % 60.3 D Lymphocytes % 28.1 D Monocytes % 9.6 Eosinophils % 1.4 D Basophils % 0.6 Nucleated RBC % 0 Sodium 138 Potassium 4.0 Chloride 104 Carbon Dioxide 25 Anion Gap 9 BUN 11 Creatinine 0.7 Creat Clearance w eGFR > 60 Random Glucose 78 Calcium 8.6 Urine Color Yellow Urine Appearance Clear Urine pH 5.0 Ur Specific [place] 1.026 Urine Protein Negative Urine Glucose (UA) Negative Urine Ketones Negative Urine Blood Negative Urine Nitrite Negative Urine Bilirubin Negative Urine Urobilinogen 2.0 H Ur Leukocyte Esterase Trace Urine WBC (Auto) 31 Urine RBC (Auto) 4 Ur Epithelial Cells Rare Urine Mucus Moderate Active Medications Generic Name Dose Route Start Last Admin Trade Name Freq PRN Reason Stop Dose Admin Diphenhydramine HCl 25 mg 05/07/18 11:12 Benadryl - PO Q6H PRN FOR ITCHING Enoxaparin Sodium 40 mg 05/07/18 10:00 05/07/18 10:51 Lovenox - SQ 40 mg DAILY MAXWELL Administration Lacosamide 200 mg 05/07/18 10:00 05/07/18 22:26 Vimpat - PO 200 mg BID MAXWELL Administration Lamotrigine 200 mg 05/07/18 10:54 05/07/18 22:52 Lamictal - PO 200 mg BID MAXWELL Administration Lorazepam 2 mg 05/07/18 22:44 Ativan - PO DAILY PRN ANXIETY Zinc Acetate/Diphenhydramine 1 applic 05/07/18 11:15 05/07/18 22:28 Benadryl 2% Cream TP 1 applic BID MAXWELL Administration Zonisamide 100 mg 05/08/18 10:00 Zonegran - PO DAILY MAXWELL ASSESSMENT/PLAN: 52yo F wtih PMH epilepsy s/p nerve stimulator presented after unwitnessed seizure Problem List - Problems (1) Breakthrough seizure Assessment/Plan: 2 tonic-clonic episodes while here, both witnessed. * responded to ativan. * lamictal dose adjusted. * zonisamide started today. * Dr Blake reached out to her neurologist yesterday but was not available. * will attempt likely tomorrow,may require further adjustment (2) Rash Assessment/Plan: appears like insect bites. * some relief with benadryl cream ; will order low dose steroid cream * Benadryl PO PRN. (3) DVT prophylaxis Assessment/Plan: early ambulation. Visit type - Emergency Visit Emergency Visit: Yes ED Registration Date: 05/08/18 Care time: The patient presented to the Emergency Department on the above date and was hospitalized for further evaluation of their emergent condition. - New Patient This patient is new to me today: Yes Date on this admission: 05/08/18 - Critical Care Critical Care patient: No
[2018-05-08] MEDS: ENOXAPARIN NA (PORCINE) 40 MG/0.4 ML DISP.SYRIN SQ SCH (10:36)
[2018-05-08] MEDS: lamoTRIgine 100 MG TABLET (FP) PO SCH ×2 (10:36→21:20)
[2018-05-08] MEDS: LACOSAMIDE 50 MG TABLET PO SCH ×2 (10:37→21:20)
[2018-05-08] MEDS: ZONISAMIDE 100 MG CAPSULE PO SCH (10:39)
--- NOTE | 2018-05-08 11:14 | PN ---
Teaching Attending Note Name of Resident: Marcel Springer ATTENDING PHYSICIAN STATEMENT I saw and evaluated the patient. I reviewed the resident's note and discussed the case with the resident. I agree with the resident's findings and plan as documented. SUBJECTIVE:c/o pruritis of the R forearm. some improvement since yesterday. states she felt her seizure coming on yesterday prior to the 2 episodes yesterday. has no aura at this time. denies CP, SOB, fever, chills, N/V/C/D had 2 tonic-clonic seizures over the past 24H and moved down to [facility] for further monitoring OBJECTIVE: Last Vital Signs Temp Pulse Resp BP Pulse Ox 98.1 F 70 16 115/62 100 05/08/18 06:00 05/08/18 06:00 05/08/18 06:00 05/08/18 06:00 05/08/18 01:33 General NAD CV S1 S2 RRR no murmur/rub/gallop Lungs CTA B/L no wheezing/rales/rhonchi Extremities R forearm with tiny bumps with surrounding erythema, some excoriations. less erythematous than yesterday ASSESSMENT AND PLAN: 52yo F wtih PMH epilepsy s/p nerve stimulator presented after unwitnessed seizure 1. Breakthrough seizure-2 tonic-clonic episodes while here, both witnessed. responded to ativan. lamictal dose adjusted. zonisamide started today. Dr Blake reached out to her neurologist yesterday but was not available. will attempt likely tomorrow. may require further adjustment to neurostimulator. no signs of infection. doubt rash on arm is causing seizure like activity but is possible. fall and seizure precautions. 2. Rash- appears to look like bug bites. appears like it is improving but only mild relief with benadryl cream, requesting something stronger. will give low dose steroid cream. benadryl po prn. 3. DVT ppx- EAM
[2018-05-08] MEDS ORDERED: PT OWN MED DRAWER 7, Y5N ONE (13:44)
[2018-05-08] MEDS: TRIAMCINOLONE ACET 0.025% CREAM 15 GM TUBE TP SCH ×2 (14:54→21:20)
--- NOTE | 2018-05-08 15:44 | PN ---
Progress Note, Physician History of Present Illness: events noted and chart reviewed Patient was evaluated on telemetric i spoke to the nurse this morning no reported clinical seizure Patient was sitting at the edge of the bed alert awake oriented patient feels slightly better patient is a very poor historian regarding the incidence of the partial seizure with questionable or she keeps claiming "I feel it coming' Patient admits that she feels slightly better that she does not want to be transferred to [place] Unfortunately I noted the rash on the patient's arm with the patient's consent I took a picture of it I'm very worried about this rash because of the Lamictal although the patient has been taking the Lamictal for 6 years. i explained to the patient that I'm in charge of her neurological care while she is in the hospital I tried to communicate were her attending and I spoke to the covering attending from [place]. patient understands that while she is at [facility] we can a follow protocol to control her seizure. Again patient denies the offered to go to [place] as a transfer. patient's only complaint is she feels dizzy patient received one tablet of lorazepam 2 mg which made her slightly dizzy in addition to the Benadryl for the rash. - Current Medication List Current Medications: Active Medications Diphenhydramine HCl (Benadryl -) 25 mg PO Q6H PRN PRN Reason: FOR ITCHING Enoxaparin Sodium (Lovenox -) 40 mg SQ DAILY COUNTS INCLUDE 234 BEDS AT THE [facility] Last Admin: 05/08/18 10:36 Dose: 40 mg Lacosamide (Vimpat -) 200 mg PO BID COUNTS INCLUDE 234 BEDS AT THE [facility] Last Admin: 05/08/18 10:37 Dose: 200 mg Lamotrigine (Lamictal -) 200 mg PO BID COUNTS INCLUDE 234 BEDS AT THE [facility] Last Admin: 05/08/18 10:36 Dose: 200 mg Lorazepam (Ativan -) 2 mg PO DAILY PRN PRN Reason: ANXIETY Triamcinolone Acetonide (Aristocort 0.025% Cream -) 1 gm TP BID COUNTS INCLUDE 234 BEDS AT THE [facility] Last Admin: 05/08/18 14:54 Dose: 1 gm Zinc Acetate/Diphenhydramine (Benadryl 2% Cream) 1 applic TP BID COUNTS INCLUDE 234 BEDS AT THE [facility] Last Admin: 05/08/18 10:35 Dose: 1 applic Zonisamide (Zonegran -) 100 mg PO DAILY COUNTS INCLUDE 234 BEDS AT THE [facility] Last Admin: 05/08/18 10:39 Dose: 100 mg - Objective Vital Signs: Vital Signs Temperature 99.2 F 05/08/18 15:37 Pulse Rate 76 05/08/18 15:37 Respiratory Rate 18 05/08/18 15:37 Blood Pressure 152/83 05/08/18 15:37 O2 Sat by Pulse Oximetry (%) 96 05/08/18 10:00 Constitutional: Yes: Well Nourished Eyes: Yes: WNL Extremities: Yes: Erythema Neurological: Yes: Alert, Oriented, Babinski negative ...Motor Strength: WNL Labs: CBC, BMP 05/08/18 05:30 05/08/18 05:30 Problem List - Problems (1) Seizure Assessment/Plan: complex partial seizure Still not well controlled 1. Very frustrating waiting for the lamotrigine level 2. Continue lamotrigine 200 mg with careful monitoring of the right arm rash and really worried about lamotrigine induced juan a/Lopez-Pipe syndrome. 3. Continue the Zonegran for now. 4. We'll continue to communicate with the [place] doctors for further evaluation regarding the neuropace 5. Continue Vimpat the same 200 mg twice daily. 6. Ativan when necessary seizure. Code(s): R56.9 - UNSPECIFIED CONVULSIONS
[2018-05-09 06:06] VITALS: TEMP 98
[2018-05-09 06:53] LABS: BASO % 0.6 % (0-2.0); EOS % 1.5 % (0-4.5); HEMATOCRIT 36.5 % (32.4-45.2); HEMOGLOBIN 11.8 GM/dL (10.7-15.3); LYMPH % 27.7 % (8-40); MCH 30.9 pg (25.7-33.7); MCHC 32.4 g/dl (32.0-36.0); MEAN CELL VOLUME 95.4 fl (80-96); MEAN PLT VOLUME 8.3 fl (7.5-11.1); MONO % 10.6 % (3.8-10.2); NEUT % 59.6 % (42.8-82.8); PLATELET COUNT 373 K/MM3 (134-434); RBC 3.82 M/mm3 (3.60-5.2); RDW 13.9 % (11.6-15.6); WHITE BLOOD COUNT 7.6 K/mm3 (4.0-10.0)
[2018-05-09 07:22] LABS: ALBUMIN 3.3 g/dl (3.4-5.0); ALK PHOS 65 U/L (45-117); ANION GAP 8 MMOL/L (8-16); BILIRUBIN,TOTAL 0.3 mg/dL (0.2-1); BLOOD UREA NITROGEN 15 mg/dL (7-18); CALCIUM 8.7 mg/dL (8.5-10.1); CHLORIDE 104 mmol/L (98-107); CO2 26 mmol/L (21-32); CREATININE 0.8 mg/dL (0.55-1.3); GLUCOSE,RANDOM 83 mg/dL (74-106); POTASSIUM 4.3 mmol/L (3.5-5.1); SGOT/AST 18 U/L (15-37); SGPT/ALT 18 U/L (13-61); SODIUM 138 mmol/L (136-145); TOT PROT 6.8 g/dl (6.4-8.2)
[2018-05-09] MEDS: TRIAMCINOLONE ACET 0.025% CREAM 15 GM TUBE TP SCH (10:22)
[2018-05-09] MEDS: LACOSAMIDE 50 MG TABLET PO SCH (10:22)
[2018-05-09] MEDS: lamoTRIgine 100 MG TABLET (FP) PO SCH (10:23)
[2018-05-09] MEDS: ENOXAPARIN NA (PORCINE) 40 MG/0.4 ML DISP.SYRIN SQ SCH (10:23)
[2018-05-09] MEDS: ZONISAMIDE 100 MG CAPSULE PO SCH (10:24)
--- NOTE | 2018-05-09 14:11 | PN ---
Teaching Attending Note Name of Resident: Guilherme Teejda ATTENDING PHYSICIAN STATEMENT I saw and evaluated the patient. I reviewed the resident's note and discussed the case with the resident. I agree with the resident's findings and plan as documented. SUBJECTIVE:c/o fatigue since starting new medication, zonisamide. no tonic/ clonic movements or aura. dneies Cp, SOB, fever, chills, N/V/C/D or tonic/ clonic movments. pt is eager to leave states pruritis of the RUE has resolved OBJECTIVE: Last Vital Signs Temp Pulse Resp BP Pulse Ox 98 F 65 18 156/91 99 05/09/18 06:00 05/09/18 06:00 05/09/18 09:00 05/09/18 06:00 05/09/18 09:00 General NAD Extremities R forearm with tiny bumps noted on the skin no specific pattern appreciated, minimal surrounding erythema. no swelling or active drainage ASSESSMENT AND PLAN: 52yo F wtih [facility] epilepsy s/p nerve stimulator presented after unwitnessed seizure 1. Breakthrough seizure-2 tonic-clonic episodes while here, both witnessed. responded to ativan. no repeat tonic/clonic movements. states has some fatigue wtih zonisamide. Dr ortiz awaiting return call from private neurologist to discuss medication adjustment. lfall and seizure precautions. 2. Rash- appears to look like bug bites, although less of a pattern now appeared. improved. does not resemble marrero shelby. 3. DVT ppx- EAM 4. can likely d/c home today as been seizure free. awaiting further recommendations per neuro. pt is aware she is not allowed to drive or operate heavy machinery
[2018-05-09 15:15] VITALS: BP 154/76; PULSE 69
--- NOTE | 2018-05-09 16:23 | DS ---
Physical Exam: SUBJECTIVE: Patient seen and examined at bedside.No seizure activity overnight. Resting in bed comfortably. Denies any complaints. OBJECTIVE: Vital Signs Period Temp Pulse Resp BP Sys/Jeronimo Pulse Ox Last 24 Hr 98 F-98.4 F 65-73 18-19 122-156/70-91 99-99 PHYSICAL EXAM GENERAL: AAOx3, NAD. HEAD: NC/AT. EYES: EOMI No scleral icterus PERRLA ENT: MMM No adenopathy No tonsilar exudates appreciated NECK: Supple LUNGS:Distant breath sounds HEART: RRR No MRG S1S2 ABDOMEN: Obese NDNT EXTREMITIES:No CCE NEUROLOGICAL: Cranial nerves II through XII grossly intact. PSYCH: Normal mood, normal affect. SKIN: Rash right arm. Resolving. LABS Laboratory Results - last 24 hr 05/09/18 05/09/18 05:30 05:30 WBC 7.6 RBC 3.82 Hgb 11.8 Hct 36.5 MCV 95.4 MCH 30.9 MCHC 32.4 RDW 13.9 Plt Count 373 MPV 8.3 Absolute Neuts (auto) 4.5 Neutrophils % 59.6 Lymphocytes % 27.7 Monocytes % 10.6 H Eosinophils % 1.5 Basophils % 0.6 Nucleated RBC % 0 Sodium 138 Potassium 4.3 Chloride 104 Carbon Dioxide 26 Anion Gap 8 BUN 15 Creatinine 0.8 Creat Clearance w eGFR > 60 Random Glucose 83 Calcium 8.7 Total Bilirubin 0.3 AST 18 ALT 18 Alkaline Phosphatase 65 Total Protein 6.8 Albumin 3.3 L Image: CT Head without contrast Comparison 06/24/2016 FINDINGS: Subsequent to prior study posterior left parietal and left temporal intracranial stimulators are now noted with electrodes causing significant artifact. There is no evidence of any intracerebral hemorrhage, mass lesion or midline shift. There is no evidence of an acute subdural hematoma. No CT evidence of acute infarct. No fractures are identified. Impression: No acute bleed or fracture.No CT evidence of acute infarct. Study limited because of artifacts is noted above PRELIMINARY REPORT PROVIDED BY RADIOLOGIST BAG PRINTER Reported By: Julien Gonzalez MD 05/07/18 0961 HOSPITAL COURSE: Date of Admission:05/08/18 Pt was admitted to [facility] on 05/07/18 for seizure activity. While in hospital pt underwent a Head CT, please see imaging findings above. While in hospital, pt experienced 2 tonic-clonic episodes. Pt was seen by Neurology and placed on Lamictal 200 mg PO BID, Vimpat 200 mg PO BID, Ativan 2 MG PO Daily, and Zonegran 100 MG PO Daily. Pt was also noted to have a rash on her Right arm which was concerning for an adverse medication reaction. Pt was ultimately started on Benadryl prn and a topical steroid. Pt was advised to follow up with her neurologist. Date of Discharge: 05/09/18 Minutes to complete discharge: 35 Discharge Summary Reason For Visit: CONVULSIONS Current Active Problems DVT prophylaxis (Acute) Rash (Acute) Seizure (Acute) Condition: Improved - Instructions Diet, Activity, Other Instructions: You were in the hospital because of seizures. You need to follow up with your neurologist. If your are unable or unwilling to see your outpatient neurologist, you can see Dr. Blake within 1 week, preferably within 3 days. You may need to have your brain stimulator adjusted. Please continue your prior medications. Please REFRAIN from operating heavy machinery or driving a vehicle. Follow up with your neurologist within 1 week. A referral to the neurologist that has seen you in the hospital has been provided to you if you are unable to see your neurologist in [facility]. Please refrain from Driving or operating heavy machine If you have another seizure, come to the emergency department immediately. Please take the following medications as listed below: These have been sent to your pharmacy. -Lamictal 200 MG PO Twice per day -Vimpat 200 mg PO Twice per day -Zonegran 100 mg PO Once per day Referrals: Paty Blake MD [Staff Physician] - 1 Week Disposition: HOME - Home Medications Comprehensive Discharge Medication List: Ambulatory Orders Lacosamide [Vimpat -] 200 mg PO BID 06/24/16 Lamotrigine [Lamictal] 200 mg PO BID 05/07/18 Lorazepam [Lorazepam Intensol] 2 mg PO DAILY PRN 05/07/18 Lacosamide [Vimpat -] 200 mg PO BID #240 tab MDD 400 05/09/18 Lamotrigine [Lamictal] 200 mg PO BID #60 tablet 05/09/18 Zonisamide [Zonegran] 100 mg PO DAILY #30 capsule 05/09/18 This patient is new to me today: Yes Date on this admission: 05/09/18 Emergency Visit: Yes ED Registration Date: 05/08/18 Care time: The patient presented to the Emergency Department on the above date and was hospitalized for further evaluation of their emergent condition. Critical Care patient: No - Discharge Referral Referred to [facility] No
--- NOTE | 2018-05-09 18:49 | PN ---
Progress Note (short form) - Note Progress Note: events noted and chart reviewed No clinical seizure Alert awake oriented 3 Tolerating the medication very well. Patient will follow-up with the [place] [facility]. Problem List - Problems (1) Seizure Code(s): R56.9 - UNSPECIFIED CONVULSIONS
== END 2018-05-09 20:58 | disposition home or self-care (01) | DRG 101 ==
LOC: JER 02:55 → JERBED 04:17 → J7W 08:07 → J4W 17:00 → OBSVTOIN 05-08 07:52
PROVIDERS: ADMIT Internal Medicine; ATTEND Internal Medicine
DX: R56.9 Unspecified convulsions (principal); Z68.42 Body mass index [BMI] 45.0-49.9, adult; E66.9 Obesity, unspecified; I10 Essential (primary) hypertension; R21 Rash and other nonspecific skin eruption; I25.10 Atherosclerotic heart disease of native coronary artery without angina pectoris; Z88.0 Allergy status to penicillin
CPT/HCPCS: 36415; 70450-TC; 71045-TC-FY; 80048; 80053; 80175; 81003; 81015; 83605; 83735; 84146; 85025; 93005; 93010; 99285-25; G0378

== ENCOUNTER 2018-06-21 14:31 | Emergency (ER) | payer OTHER ==
[2018-06-21 14:44] VITALS: BP 151/80; PULSE 79; TEMP 98; BMI 51.0
--- NOTE | 2018-06-21 14:51 | PDOC ---
History of Present Illness - General Chief Complaint: Eye Problem Stated Complaint: EYE PROBLEM Time Seen by Provider: 06/21/18 14:41 History Source: Patient Exam Limitations: No Limitations - History of Present Illness Initial Comments: CHIEF COMPLAINT: 52 y/o afebrile female c/o swelling, redness and itching to right eye since last night. HISTORY OF PRESENT ILLNESS: Patient states she woke up with right eye stuck shut with yellow crusties. SHe admits her right eye was also swollen. She states her granddaughter has the same symptoms of left eye. No other issues. Vital signs on arrival are within normal limits. REVIEW OF SYSTEMS: GENERAL/CONSTITUTIONAL: No fever HEAD, EYES, EARS, NOSE AND THROAT: +swelling, itching and redness to right eye NEUROLOGIC: No headache, vertigo, loss of consciousness, or loss of sensation. PHYSICAL EXAM: GENERAL: The patient is awake, alert, and fully oriented, in no acute distress. HEAD: Normal with no signs of trauma. ENT: Pupils equal, round and reactive to light, extraocular movements intact, sclera anicteric, right conjunctiva injected. right eyelids swollen with yellow crust noted on lid margin. No pain with EOMs. No proptosis or ptosis. NEUROLOGICAL: Normal speech, normal gait. CN II-XII grossly intact. Past History - Past Medical History Allergies/Adverse Reactions: Allergies Allergy/AdvReac Type Severity Reaction Status Date / Time levetiracetam [From Keppra] Allergy Verified 06/21/18 14:33 oxycodone HCl [From Percocet] Allergy Itching Verified 06/21/18 14:33 Penicillins Allergy Verified 06/21/18 14:33 iv contrast Allergy Unknown Hives Uncoded 06/21/18 14:33 Home Medications: Ambulatory Orders Lamotrigine [Lamictal] 200 mg PO BID 05/07/18 Lacosamide [Vimpat -] 200 mg PO BID #240 tab MDD 400 05/09/18 Zonisamide [Zonegran] 100 mg PO DAILY #30 capsule 05/09/18 Erythromycin 0.5% Eye Ointment [Erythromycin 0.5% Eye Ointment -] 1 applic OU TID #1 tube 06/21/18 COPD: No Diabetes: No HTN: No Kidney Stones: Yes Seizures: Yes (Epileptic) - Surgical History Cardiac Surgery: Yes (x 2) Neurologic Surgery: Yes (neuropace ([place])) - Immunization History Immunization Up to Date: Yes - Suicide/Smoking/Psychosocial Hx Smoking Status: No Smoking History: Never smoked Have you smoked in the past 12 months: No Number of Cigarettes Smoked Daily: 0 Hx Alcohol Use: No Drug/Substance Use Hx: No Substance Use Type: None Medical Decision Making - Medical Decision Making A/P: 52 y/o female with conjunctivitis. Will send rx for erythro ointment. Suggested warm/hot compresses and good hand washing. The patient verbalizes understanding of all instructions, has no further questions and is awaiting discharge. *DC/Admit/Observation/Transfer Diagnosis at time of Disposition: Conjunctivitis Qualifiers: Conjunctivitis type: acute Acute conjunctivitis type: bacterial Laterality: right Qualified Code(s): H10.31 - Unspecified acute conjunctivitis, right eye - Discharge Dispostion Disposition: HOME Condition at time of disposition: Good - Referrals - Patient Instructions Printed Discharge Instructions: DI for Conjunctivitis Additional Instructions: Discharge Instructions: -You have conjunctivitis; an infection of your eye. -A prescription for an eye ointment has been sent to your pharmacy -Please apply warm/hot compresses to your eye 3 times per day -Wash your hands well with soap and water after touching your face -Return to the ER with any worsening or concerning symptoms - Post Discharge Activity
== END 2018-06-21 15:13 | disposition home or self-care (01) ==
LOC: JERFT 14:31
DX: H10.31 Unspecified acute conjunctivitis, right eye (principal); G40.909 Epilepsy, unspecified, not intractable, without status epilepticus
CPT/HCPCS: 99281-25

== ENCOUNTER 2018-08-05 16:06 | Emergency (ER) | payer OTHER ==
--- NOTE | 2018-08-05 16:31 | PDOC ---
History of Present Illness - General Chief Complaint: Seizure Stated Complaint: Seizure Time Seen by Provider: 08/05/18 16:29 - History of Present Illness Initial Comments: 52yo F with history of 10-year history of seizures s/p neuropace device in 2016 presenting with seizure. Patient is an employee at [employer] and was sitting at work when she felt an aura that comes before her seizures. Shortly after, patient experienced a seizure in which her muscles tensed and became rigid. Denies any fall or injury. Though this seizure was witnessed by her coworkers, only one coworker is present during this history-taking and she is unable to specify how long the seizure took place. Patient denies tongue/lip biting or urinary/stool incontinence. She reports adherence to her medications (Lamictal 200mg BID, Vimpat 200mg BID)with no recent changes except for the addition of another drug on 07/24/18 (Anfi 2mg HS). Her neuropace device keeps records of when she has a seizure. Patient reports that she last had seizures in June. The only time she has not had seizures in the past five years was in the month of March 2018. Otherwise, patient has been closely followed by her neurologist at [facility] and has been placed on many different antiseizure medicines. She reports many different types of seizures including both general and partial. Patient does not always present to the ED for seizure , but her coworkers sent her the ED for further evaluation. Denies fevers, chills, chest pain, or shortness of breath. PCP: Dr. Roula García ([facility]) Neurologist: Brandon Hanks Past History - Past Medical History Allergies/Adverse Reactions: Allergies Allergy/AdvReac Type Severity Reaction Status Date / Time levetiracetam [From Keppra] Allergy Verified 06/21/18 14:33 oxycodone HCl [From Percocet] Allergy Itching Verified 06/21/18 14:33 Penicillins Allergy Verified 06/21/18 14:33 iv contrast Allergy Unknown Hives Uncoded 06/21/18 14:33 Home Medications: Ambulatory Orders Lamotrigine [Lamictal] 200 mg PO BID 05/07/18 Lacosamide [Vimpat -] 150 mg PO BID MDD 400 08/05/18 COPD: No Diabetes: No HTN: No Kidney Stones: Yes Seizures: Yes (Epileptic) - Surgical History Cardiac Surgery: Yes (x 2) Neurologic Surgery: Yes (neuropace ([place])) - Immunization History Immunization Up to Date: Yes - Suicide/Smoking/Psychosocial Hx Smoking Status: No Smoking History: Never smoked Have you smoked in the past 12 months: No Number of Cigarettes Smoked Daily: 0 Hx Alcohol Use: No Drug/Substance Use Hx: No Substance Use Type: None Review of Systems - Review of Systems Comments:: Constitutional: no fever, no chills HEENT: no throat pain, no dysphagia Cardiovascular: no chest pain, no palpitations Respiratory: no cough, no shortness of breath Gastrointestinal: no abdominal pain, no nausea Genitourinary: no dysuria, no frequency Musculoskeletal: +myalgia, no arthralgia Skin: no rash, no itching Neurologic: no headache, no dizziness *Physical Exam - Physical Exam Comments: General: Awake, alert, and fully oriented, in no acute distress Head: No signs of trauma Eyes: EOMI, sclera anicteric ENT: Moist mucus membranes Neck: Normal ROM, supple Lungs: Lungs clear, Normal breath sounds Cardio: Regular rhythm, S1 and S2 present Abdomen: Soft, nontender. No guarding, no rebound, no masses Extremities: Normal range of motion, Distal pulses present SKIN: Warm, Dry, normal turgor Neurologic: Cranial nerves II through XII intact. Normal speech, sensation, strength, coordination, and gait. Medical Decision Making - Medical Decision Making 52yo F with history of seizures s/p neuropace device in 2017 presenting with seizure x 10 years. This seizure is consistent with her usual seizures Patient is compliant with her medications and is s/p neuropace device She has returned to her neurologic baseline, and is no longer post-ictal She is a reliable patient who is amenable to following-up with her neurologist Non-focal neurologic exam Patient discharged *DC/Admit/Observation/Transfer Diagnosis at time of Disposition: Seizure - Discharge Dispostion Disposition: HOME Condition at time of disposition: Stable - Referrals Referrals: Chelsea García MD [Primary Care Provider] - - Patient Instructions Printed Discharge Instructions: DI for Seizure Disorder -- Adult Additional Instructions: You came into the ED after a seizure. We performed a history and physical which was normal. Neurological exam was normal. Take your seizure medicines as prescribed. Follow-up with your neurologist this week to discuss this ED visit and to further evaluate your symptoms. RETURN if: you have severe headache, high fever, persistent vomiting, changes in vision, or any other new or concerning symptoms. If you think you are having an emergency, call for emergency medical services or present to the emergency department right away - Post Discharge Activity Forms/Work/School Notes: Back to Work
[2018-08-05 16:49] VITALS: BP 141/85; PULSE 78; TEMP 98.1; BMI 50.4
--- NOTE | 2018-08-05 17:30 | PDOC ---
Attending Attestation - Resident Resident Name: Madeleine Boyer - ED Attending Attestation I have performed the following: I have examined & evaluated the patient, The case was reviewed & discussed with the resident, I agree w/resident's findings & plan, Exceptions are as noted - HPI HPI: 08/05/18 17:26 52 year old F c/ seizure disorder (employee at [employer]) p/w 1 episode of general tonic clonic seizure, witnessed. Patient reports history of persistent seizures being followed at [facility]. Last seizure in June. Has a neuro pacer, and has been adherent to her lamictal 200 mg PO BID, onfi 2 mg qhs, vimpat 200 mg BID. Today, has an aura at work and had a witnessed seizure episode. Had a brief postictal period but now back to normal. Family at bedside. Pt denies any other associated symptoms. no fevers, chills, cough, vomiting, diarrhea, dysuria. - Physicial Exam PE: 08/05/18 17:29 GENERAL: Awake, alert, and fully oriented, in no acute distress HEAD: No signs of trauma EYES: EOMI, sclera anicteric, conjunctiva clear ENT: Auricles normal inspection, hearing grossly normal, nares patent, Moist mucosa NECK: Normal ROM, supple EXTREMITIES: Normal range of motion, no edema. No clubbing or cyanosis. No cords, erythema, or tenderness NEUROLOGICAL: Cranial nerves II through XII grossly intact. Normal speech, normal gait SKIN: Warm, Dry, normal turgor, no rashes or lesions noted. - Medical Decision Making 08/05/18 17:30 Vital Signs Temp Pulse Resp BP Pulse Ox 98.1 F 78 20 141/85 98 08/05/18 16:28 08/05/18 16:28 08/05/18 16:28 08/05/18 16:28 08/05/18 16:28 This is seizure likely secondary to epilepsy. Pt feels back to baseline. Given her chronic seizure history and confirmation by patient and family, I will allow the patient to be d/c home. Pt has follow up with neuro. Pt's family will drive patient. <Raul Montalvo - Last Filed: 08/05/18 17:26> - Medical Decision Making Documentation prepared by MESERET Leone, acting as medical supply technician for Raul Montalvo MD. 08/05/18 17:49 <Cassandra Cruz - Last Filed: 08/05/18 17:49>
== END 2018-08-05 17:57 | disposition home or self-care (01) ==
LOC: JER 16:06
DX: G40.909 Epilepsy, unspecified, not intractable, without status epilepticus (principal); Z96.89 Presence of other specified functional implants
CPT/HCPCS: 99282-25

== ENCOUNTER 2018-10-31 12:51 | Emergency (ER) | payer OTHER ==
--- NOTE | 2018-10-31 12:59 | PDOC ---
History of Present Illness - General Chief Complaint: Seizure Stated Complaint: Seizure Time Seen by Provider: 10/31/18 12:59 History Source: Patient Exam Limitations: No Limitations - History of Present Illness Initial Comments: 10/31/18 13:19 52 year old female with PMH seizure disorder presented to ED for multiple seizures today, last took Lamictal x2 days ago. Pt admitted to decreased sleeping. Pt denied recent illness, fever, chills, nausea, vomiting, diarrhea. Pt stated her seizures were unwitnessed, occurring while she was sitting on the couch, she denied fall or head injury. Allergies: levetiracetam, oxycodone, PCN, IV contrast Past History - Past Medical History Allergies/Adverse Reactions: Allergies Allergy/AdvReac Type Severity Reaction Status Date / Time levetiracetam [From Keppra] Allergy Verified 06/21/18 14:33 oxycodone HCl [From Percocet] Allergy Itching Verified 06/21/18 14:33 Penicillins Allergy Verified 06/21/18 14:33 iv contrast Allergy Unknown Hives Uncoded 06/21/18 14:33 Home Medications: Ambulatory Orders Lamotrigine [Lamictal] 200 mg PO BID 05/07/18 Lacosamide [Vimpat -] 150 mg PO BID MDD 400 08/05/18 COPD: No Diabetes: No HTN: No Kidney Stones: Yes Seizures: Yes (Epileptic) - Surgical History Cardiac Surgery: Yes (x 2) Neurologic Surgery: Yes (neuropace ([place])) - Immunization History Immunization Up to Date: Yes - Suicide/Smoking/Psychosocial Hx Smoking Status: No Smoking History: Never smoked Have you smoked in the past 12 months: No Number of Cigarettes Smoked Daily: 0 Hx Alcohol Use: No Drug/Substance Use Hx: No Substance Use Type: None Review of Systems - Review of Systems Able to Perform ROS?: Yes Comments:: 10/31/18 13:21 General: denied fever, chills, generalized weakness. HEENT: denied sore throat, rhinorrhea, ear pain. Heart: denied chest pain, palpitations, syncope, diaphoresis. Respiratory: denied shortness of breath, cough, sputum production, hemoptysis. Abdomen: denied abdominal pain, nausea, vomiting, diarrhea, constipation, blood in stool. : denied dysuria, increased urinary frequency, hematuria, urinary incontinence , flank pain. Back: denied back pain. Musculoskeletal: denied joint pain, muscle pain, joint swelling. Neurological: admitted to headache, seizure. denied dizziness, numbness, tingling, weakness. Skin: denied rash, laceration, abrasion. *Physical Exam - Physical Exam Comments: 10/31/18 13:21 Constitutional: Well-nourished, Well-developed, appearing stated age. HEENT: head is normocephalic, atraumatic. EOMI. PERRLA. Neck: supple. Full ROM. Heart: regular rhythm. no murmurs, rubs or gallops. Lungs: clear to auscultation bilaterally. no crackles, rhonchi or wheezing. no stridor. Abdomen: soft, nontender. normal bowel sounds. no rebound, guarding, masses. Extremities: peripheral pulses intact. no lower extremity edema. Neurological: alert. oriented x3. CN2-12 intact. 5/5 strength all extremities. full sensation all extremities and bilateral face. no ataxia. gait not observed. Psych: awake, alert, oriented x3. follows commands. answers questions appropriately. Medical Decision Making - Medical Decision Making 10/31/18 13:22 52 year old female with PMH seizure disorder presented to ED for seizures after running out of her Lamictal. Initial Vital Signs Temp Pulse Resp BP Pulse Ox 99.0 F 90 16 154/83 96 10/31/18 12:51 10/31/18 12:51 10/31/18 12:51 10/31/18 12:51 10/31/18 12:51 Afebrile. No tachycardia. No tachypnea. Mild hypertension. No hypoxia on room air. Labs ordered: none Imaging ordered: none Medications ordered: Lamictal 200 mg PO once, Tylenol 975 mg PO once, Ativan 1 mg IV once 10/31/18 16:04 Pt reported not feeling aura, would like to be discharged. Alert and oriented. Neurologically intact. Pt has been seizure free. Disposition: Discharged Discharge medications: none Vital Signs Pulse Rate 82 10/31/18 16:55 Respiratory Rate 16 10/31/18 16:55 Blood Pressure 145/70 10/31/18 16:55 O2 Sat by Pulse Oximetry (%) 99 10/31/18 16:55 No tachycardia. No tachypnea. Mild hypertension, improved from prior. No hypoxia on room air. *DC/Admit/Observation/Transfer Diagnosis at time of Disposition: Seizure, Noncompliance with medication regimen - Discharge Dispostion Condition at time of disposition: Stable - Referrals Referrals: Sarahi Willson MD [Primary Care Provider] - - Patient Instructions Printed Discharge Instructions: DI for Seizure Disorder -- Adult Additional Instructions: You were seen today for seizures. Take your medication as prescribed, do not ever miss any doses. 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 Follow up with your neurologist within 2-3 days. Your care is not complete until you follow up. Follow up with your primary care doctor in 2-3 days. Your care is not complete until you follow up. Return to the Emergency Department for seizures, fever, chills, vomiting, chest pain, shortness of breath, weakness, numbness, tingling, gait problems or any other new, worsening or concerning symptoms. - Post Discharge Activity
[2018-10-31 13:06] VITALS: TEMP 99; BMI 49.6
[2018-10-31] MEDS ORDERED: ACETAMINOPHEN 325 MG TABLET (FP) PO ONE (13:20)
[2018-10-31] MEDS ORDERED: ACETAMINOPHEN 325 MG TABLET (FP) ONE (14:05)
[2018-10-31] MEDS ORDERED: LORazepam 2 MG/ML SDV VIAL ONE (14:05)
--- NOTE | 2018-10-31 14:25 | PDOC ---
Documentation entered by Marilyn Landeros SCRIBE, acting as scribe for Madeleine Beltran MD. Madeleine Beltran MD: This documentation has been prepared by the scribe, Marilyn Landeros SCRIBE, under my direction and personally reviewed by me in its entirety. I confirm that the documentation accurately reflects all work, treatment, procedures, and medical decision making performed by me. Attending Attestation - Resident Resident Name: OscarAnuradha - ED Attending Attestation I have performed the following: I have examined & evaluated the patient, The case was reviewed & discussed with the resident, I agree w/resident's findings & plan, Exceptions are as noted - HPI HPI: 10/31/18 13:46 The patient is a 52 year old female with past medical history of seizures who presents to the ED s/p unwitnessed seizures x3 today. She reports all seizures occurred while she was laying on her cough and denies hitting her head. In the ED she reports having her aura still, which is a feeling of cathy vu. Denies any headache, visual changes or other focal neurological deficits. Patient adds she has not refilled her Lamictal and has not taken it for two days. - Physicial Exam PE: GENERAL: Awake, alert, and fully oriented, in no acute distress. Tearful at times HEAD: No signs of trauma EYES: PERRLA, EOMI, sclera anicteric, conjunctiva clear ENT: Auricles normal inspection, hearing grossly normal, nares patent, oropharynx clear without exudates. Moist mucosa NECK: Normal ROM, supple, no lymphadenopathy, JVD, or masses LUNGS: Breath sounds equal, clear to auscultation bilaterally. No wheezes, and no crackles HEART: Regular rate and rhythm, normal S1 and S2, no murmurs, rubs or gallops ABDOMEN: Soft, nontender, normoactive bowel sounds. No guarding, no rebound. No masses EXTREMITIES: Normal range of motion, no edema. No clubbing or cyanosis. No cords, erythema, or tenderness NEUROLOGICAL: Cranial nerves II through XII grossly intact. Normal speech, normal gait. Motor and sensation intact SKIN: Warm, Dry, normal turgor, no rashes or lesions noted. - Medical Decision Making Pt presents with multiple seizures. She has not had her lamictal for the past 3 days, she lost it during a move. She has a refill in the pharmacy but has not been able to pick it up. She also has had very poor sleep for the last few nights, particularly last night. She still feels aura in ED. Will give small dose of ativan in ED, then will give her missed dose of Lamictal.
[2018-10-31] MEDS ORDERED: lamoTRIgine 100 MG TABLET (FP) ONE (14:41)
[2018-10-31 16:56] VITALS: BP 145/70; PULSE 82
== END 2018-10-31 16:56 | disposition home or self-care (01) ==
LOC: JER 12:51
PROC: 3E033NZ Introduction of Analgesics, Hypnotics, Sedatives into Peripheral Vein, Percutaneous Approach (ICD-10-PCS; principal; 2018-10-31)
DX: R56.9 Unspecified convulsions (principal); Z91.14 Patient's other noncompliance with medication regimen; N20.0 Calculus of kidney
CPT/HCPCS: 99282-25

== ENCOUNTER 2020-02-06 13:30 | Emergency (ER) | payer OTHER ==
[2020-02-06 13:46] VITALS: PULSE 64; TEMP 98.2; BMI 45.6
[2020-02-06] MEDS ORDERED: MIDAZOLAM HCL 2 MG/2 ML SINGLE DOSE VIAL ONE (13:55)
[2020-02-06] MEDS ORDERED: MIDAZOLAM HCL 2 MG/2 ML SINGLE DOSE VIAL IVPUSH ONE (15:10)
--- NOTE | 2020-02-06 15:13 | PDOC ---
History of Present Illness <John Olivares - Last Filed: 02/06/20 17:03> - History of Present Illness Initial Comments: 02/06/20 15:14 54yo F with history seizures s/p neuropace device in 2017 presenting with seizure. Patient was at work at [employer], when she she felt an aura that comes before her seizures. Shortly after, patient experienced a seizure in which her muscles tensed and became rigid. Denies any fall or injury. Though she states this seizure was witnessed by her coworkers, none are present currently. Patient denies tongue/lip biting or urinary/stool incontinence. She reports adherence to her medications, with recent change of increase in her Anfi. Her neuropace device keeps records of when she has a seizure. Patient reports that she last had seizures three months prior. Sates her triggers include decreased sleep and increase stress at work, which she has been experiencing for the last several days. Denies fevers, chills, chest pain, or shortness of breath. She took 0.5mg of ativan earlier, which did not stop her seizures. EMS gave 5mg midazolam IM, which worked. She was initially post-ictal in the ER, then seized (vs. pseudo-seizure) twice in the ER, and was given 2mg versed IV, with resolution of symptoms. Neurologist: Brandon Hanks at [facility] ( ) ROS: Constitutional: no fever, no chills HEENT: no throat pain, no dysphagia Cardiovascular: no chest pain, no palpitations Respiratory: no cough, no shortness of breath Gastrointestinal: no abdominal pain, no nausea Genitourinary: no dysuria, no frequency Musculoskeletal: no myalgia, no arthralgia Skin: no rash, no itching Neurologic: +seizure. no headache, no dizziness PE: Head: No signs of trauma Eyes: EOMI, sclera anicteric ENT: Moist mucus membranes Neck: Normal ROM, supple Lungs: Lungs clear, Normal breath sounds Cardio: Regular rhythm, S1 and S2 present Abdomen: Soft, nontender. No guarding, no rebound, no masses Extremities: Normal range of motion, Distal pulses present SKIN: Warm, Dry, normal turgor Neurologic: Normal speech, sensation, strength MDM 52yo F with history of seizures s/p neuropace device in 2017 presenting with seizure consistent with her usual seizures. She took 0.5mg of ativan earlier, which did not stop her seizures. EMS gave 5mg midazolam IM, which worked. She was initially post-ictal in the ER, then seized (vs. pseudo-seizure) twice in the ER, and was given 2mg versed IV, with resolution of symptoms. IV access was difficult to obtain, with just a 24 gauge in the hand, with no successful blood draws. -CMP, CBC, seizure drug levels. Only CMP and drug levels were able to be drawn. CMP notable for glucose 64. Patient asymptomatic and given a juice. Repeat POCT in the 80s. 02/06/20 16:30 Patient is compliant with her medications and is s/p neuropace device She has returned to her neurologic baseline, and is no longer post-ictal She is a reliable patient who is amenable to following-up with her neurologist Her neurologist recommended increasing nightly clobazam from 20mg to 30mg, and patient is amenable. <Reuben Pena - Last Filed: 02/06/20 17:45> - General Chief Complaint: Seizure Stated Complaint: Seizure Time Seen by Provider: 02/06/20 13:49 Past History <John Olivares - Last Filed: 02/06/20 17:03> - Medical History COPD: No Diabetes: No HTN: No Kidney Stones: Yes Seizures: Yes (Epileptic) - Surgical History Cardiac Surgery: Yes (x 2) Neurologic Surgery: Yes (neuropace ([place])) - Reproductive History Is Patient Now?: No - Immunization History Immunization Up to Date: Yes - Psycho-Social/Smoking History Smoking Status: No Smoking History: Former smoker Have you smoked in the past 12 months: No Number of Cigarettes Smoked Daily: 0 Information on smoking cessation initiated: No - Substance Abuse Hx (Audit-C & DAST Scrn) How often the patient has a drink containing alcohol: Never Score: In Men: 4 or > Positive; In Women: 3 or > Positive: 0 Screen Result (Pos requires Nsg. Audit-10AR): Negative In the last yr the pt used illegal drug/Rx for NonMed reason: No Score: Yes response is considered Positive: 0 Screen Result (Positive result requires Nsg. DAST-10): Negative <Reuben Pena - Last Filed: 02/06/20 17:45> - Medical History Allergies/Adverse Reactions: Allergies Allergy/AdvReac Type Severity Reaction Status Date / Time levetiracetam [From Keppra] Allergy Verified 02/06/20 13:38 oxycodone HCl [From Percocet] Allergy Itching Verified 02/06/20 13:38 Penicillins Allergy Verified 02/06/20 13:38 iv contrast Allergy Unknown Hives Uncoded 02/06/20 13:38 Home Medications: Ambulatory Orders Lamotrigine [Lamictal] 200 mg PO BID 05/07/18 Lacosamide [Vimpat -] 150 mg PO BID MDD 400 08/05/18 Clobazam [Onfi] 20 mg PO HS 02/06/20 Lorazepam [Ativan] 0.5 mg PO PRN PRN 02/06/20 *Physical Exam - Vital Signs Last Vital Signs Temp Pulse Resp BP Pulse Ox 98.2 F 64 18 162/88 98 02/06/20 13:40 02/06/20 16:00 02/06/20 16:00 02/06/20 16:00 02/06/20 16:00 <John Olivares - Last Filed: 02/06/20 17:03> - Vital Signs Last Vital Signs Temp Pulse Resp BP Pulse Ox 98.2 F 64 18 174/94 H 99 02/06/20 13:40 02/06/20 13:40 02/06/20 13:40 02/06/20 13:40 02/06/20 13:40 <Reuben Pena - Last Filed: 02/06/20 17:45> ED Treatment Course - LABORATORY CBC & Chemistry Diagram: 02/06/20 14:43 - ADDITIONAL ORDERS Additional order review: Laboratory Results 02/06/20 02/06/20 16:53 14:43 Sodium 143 Potassium 4.3 Chloride 111 H Carbon Dioxide 17 L Anion Gap 14 BUN 15.1 Creatinine 0.9 Est GFR (CKD-EPI)AfAm 84.01 Est GFR (CKD-EPI)NonAf 72.49 POC Glucometer 83 Random Glucose 64 L Calcium 9.2 Total Bilirubin 0.4 AST 21 ALT 19 Alkaline Phosphatase 69 Total Protein 7.7 Albumin 3.8 02/06/20 16:53 POC Glucometer 83 - Medications Given in the ED: ED Medications Discontinued Medications Generic Name Dose Route Start Last Admin Trade Name Freq PRN Reason Stop Dose Admin Midazolam HCl 2 mg 02/06/20 15:10 02/06/20 14:00 Versed - IVPUSH 02/06/20 15:11 2 mg ONCE ONE Administration <John Olivares - Last Filed: 02/06/20 17:03> - LABORATORY CBC & Chemistry Diagram: 02/06/20 14:43 - Medications Given in the ED: ED Medications Discontinued Medications Generic Name Dose Route Start Last Admin Trade Name Javier PRN Reason Stop Dose Admin Midazolam HCl 2 mg 02/06/20 15:10 02/06/20 14:00 Versed - IVPUSH 02/06/20 15:11 2 mg ONCE ONE Administration <Reuben Pena - Last Filed: 02/06/20 17:45> Medical Decision Making - Medical Decision Making 02/06/20 17:00 Telephone conversation with the pt's neurologist, Dr. Hanks, via telephone. Reports the pt will usually have a cluster of seizures once a month. Suggested the pt temporarily increase her nightly Clobazam. Did not think the pt should be admitted or transferred to [place] for further evaluation as this was generally the pt's documented baseline. Will have her office call and schedule close follow up. Discussed the recommendations with the pt. Offered overnight observation for further seizure watch, but pt declined. Stated she would like to go home. Lives with her daughter. Offered to call the daughter and discuss the recommendations. Pt declined offer and stated she would relay the information. John Olivares M.D., PGY3 Emergency Medicine Resident <John Olivares - Last Filed: 02/06/20 17:03> Discharge <John Olivares - Last Filed: 02/06/20 17:03> - Discharge Information Problems reviewed: Yes - Admission No <Reuben Pena - Last Filed: 02/06/20 17:45> - Discharge Information Clinical Impression/Diagnosis: Seizure Condition: Improved Disposition: HOME - Follow up/Referral Referrals: Sarahi Willson MD [Primary Care Provider] - - Patient Discharge Instructions Patient Printed Discharge Instructions: DI for Seizure Disorder -- Adult Additional Instructions: You were seen in the ER for seizures. You arived in a post-ictal (confused, post-seizure state), then had two more seizures while here. The seizures stopped after we twice gave you 2mg of IV versed. We did some labwork which showed a mildly low blood sugar, which improved after you drank a cup of juice. You likely had a breakthrough seizure due to your underlying seizure disorder. We reached out to you neurologist, Dr. Brandon Hanks, who recommended you increase you nightly clobazam dose from 20mg to 30mg. Your neurologist will call you to schedule an appointment. Please return to the ED if you have worsening or continued symptoms, fever, chills, weakness, unexplained weight loss or any other reason. - Post Discharge Activity
--- NOTE | 2020-02-06 15:41 | PDOC ---
Documentation entered by Mallorie Cruz SCRIBE, acting as scribe for Jessica Shah MD. Jessica Shah MD: This documentation has been prepared by the Nancy faustin Brenda, SCRIBE, under my direction and personally reviewed by me in its entirety. I confirm that the documentation accurately reflects all work, treatment, procedures, and medical decision making performed by me. Attending Attestation - Resident Resident Name: Reuben Pena - ED Attending Attestation I have performed the following: I have examined & evaluated the patient, The case was reviewed & discussed with the resident, I agree w/resident's findings & plan, Exceptions are as noted - HPI HPI: 02/06/20 15:30 54 YOF with a PMH of seizures s/p neuropace device in 2017 who presents to the ED for evaluation of seizure 10-year history of seizures s/p neuropace device in 2017. Patient is an employee at [employer] She reports adherence to her medications (Lamictal 200mg BID, Vimpat 200mg BID) (Anfi 2mg HS). Her neuropace device keeps records of when she has a seizure. Otherwise, patient has been closely followed by her neurologist at [facility] and has been placed on many different antiseizure medicines. She reports many different types of seizures including both general and partial. Denies fevers, chills, chest pain, or shortness of breath, abdominal pain, weakness or paresthesias.. Admits to Decreased sleep/stress at work. PCP: Dr. Roula García ([facility]) Neurologist: Brandon Hanks [place] 02/06/20 15:32 - Physicial Exam PE: 02/06/20 15:34 Agree with the resident's HPI and PE as documented in the electronic medical record. NAD, postictal, EOMI, PERRL, nl conjunctiva, anicteric; neck supple. lungs clear, RRR, abdomen soft obese, nontender. no rebound, guarding. ZULETA x4, no focal neuro deficits. No peripheral edema. normal color for ethnicity, WWP. - Medical Decision Making 02/06/20 15:34 Vital Signs Temp Pulse Resp BP Pulse Ox 98.2 F 64 18 174/94 H 99 02/06/20 13:40 02/06/20 13:40 02/06/20 13:40 02/06/20 13:40 02/06/20 13:40 pt presents with sz activity, postictal vitals reviewed, initially hypertensive, normal HR, no respiratory distress. given low dose of midazolam. more back to baseline, neuro intact, conversive no other sx admits to stressors and lack of sleep reducing her sz threshold compliant with medications attempted to call [place] for her neuro monitor check. no answer, pt has close f/u neurology. Discharge - Discharge Information Problems reviewed: Yes Clinical Impression/Diagnosis: Seizure Condition: Stable - Admission No - Follow up/Referral Referrals: Sarahi Willson MD [Primary Care Provider] - - Patient Discharge Instructions - Post Discharge Activity
[2020-02-06 15:47] LABS: ALBUMIN 3.8 g/dl (3.4-5.0); BILIRUBIN,TOTAL 0.4 mg/dL (0.2-1); BLOOD UREA NITROGEN 15.1 mg/dL (7-18); CALCIUM 9.2 mg/dL (8.5-10.1); CREATININE 0.9 mg/dL (0.55-1.3); POTASSIUM 4.3 mmol/L (3.5-5.1); TOT PROT 7.7 g/dl (6.4-8.2)
[2020-02-06 16:01] VITALS: BP 162/88
--- NOTE | 2020-02-07 09:23 | EKG ---
Test Reason : Blood Pressure : / mmHG Vent. Rate : 063 BPM Atrial Rate : 063 BPM P-R Int : 186 ms QRS Dur : 086 ms QT Int : 418 ms P-R-T Axes : 053 033 021 degrees QTc Int : 427 ms NORMAL SINUS RHYTHM POSSIBLE LEFT ATRIAL ENLARGEMENT BORDERLINE ECG WHEN COMPARED WITH ECG OF 07-MAY-2018 03:12, NONSPECIFIC T WAVE ABNORMALITY NOW EVIDENT IN ANTERIOR LEADS Confirmed by Izaiah Moore MD ([id number]) on 02/07/2020 9:22:57 AM Referred By: Confirmed By:Izaiah Moore MD
== END 2020-02-06 17:15 | disposition home or self-care (01) ==
LOC: JER 13:30
PROC: 3E033GC Introduction of Other Therapeutic Substance into Peripheral Vein, Percutaneous Approach (ICD-10-PCS; principal; 2020-02-06)
DX: G40.89 Other seizures (principal)
CPT/HCPCS: 36415; 80053; 82962; 93005; 93010; 99284-25

== ENCOUNTER 2020-03-19 11:03 | Emergency (ER) | payer OTHER ==
[2020-03-19 11:16] VITALS: PULSE 80; BMI 48.2
--- NOTE | 2020-03-19 11:16 | PDOC ---
History of Present Illness - General History Source: Unavil. due to pt. cond. Exam Limitations: No Limitations - History of Present Illness Initial Comments: 03/19/20 11:37 54 y.o. F PMHx seizures s/p neurostim response device in 2017 presenting with seizure. Patient is presenting by EMS due to a seizure while at work. Patient has seizure like activity of both arms with generalized shaking. She is is currently in a post-ictal state able to answer minimal questions/ follow commands. Most recent seizure on 02/06/20 and per her chart she endorses seizure triggers to be lack of sleep and stress at work. Spoke over phone with Dr. 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 Home meds include lamotragine 200mg BID, vimpat 150 BID, clobazam 2x 20 qhs. 03/19/20 12:01 - Difficult stick 1 line placed on R foot, given 1mg Ativan IV. 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 DAST-10): Negative <Davonte Fritz - Last Filed: 03/19/20 13:55> <Babita Neal - Last Filed: 03/19/20 14:17> - Medical History Allergies/Adverse Reactions: Allergies Allergy/AdvReac Type Severity Reaction Status Date / Time levetiracetam [From Keppra] Allergy Verified 03/19/20 11:11 oxycodone HCl [From Percocet] Allergy Itching Verified 03/19/20 11:11 Penicillins Allergy Verified 03/19/20 11:11 iv contrast Allergy Unknown Hives Uncoded 03/19/20 11:11 Home Medications: Ambulatory Orders Lamotrigine [Lamictal] 200 mg PO BID 05/07/18 Lacosamide [Vimpat -] 150 mg PO BID MDD 400 08/05/18 Clobazam [Onfi] 20 mg PO HS 02/06/20 Lorazepam [Ativan] 0.5 mg PO PRN PRN 02/06/20 Nitrofurantoin Monohyd/M-Cryst [Macrobid -] 100 mg PO BID #10 capsule 03/19/20 Review of Systems - Review of Systems Able to Perform ROS?: No Is the patient limited Macedonian proficient: Yes <Davonte Fritz - Last Filed: 03/19/20 13:55> *Physical Exam - Vital Signs Last Vital Signs Temp Pulse Resp BP Pulse Ox 97.5 F L 80 16 160/84 98 03/19/20 11:05 03/19/20 11:05 03/19/20 11:05 03/19/20 11:05 03/19/20 11:05 - Physical Exam General Appearance: Yes: Nourished, Appropriately Dressed. No: Apparent Distress Respiratory/Chest: positive: Lungs Clear, Normal Breath Sounds. negative: Chest Tender, Respiratory Distress, Accessory Muscle Use, Crackles, Rales, Rhonchi, Stridor Cardiovascular: positive: Regular Rhythm, Regular Rate. negative: Edema, JVD, Murmur Gastrointestinal/Abdominal: positive: Normal Bowel Sounds, Flat, Soft, Protuberent. negative: Tender, Organomegaly, Distended, Guarding, Rebound, Tenderness, Mass Musculoskeletal: positive: Normal Inspection. negative: CVA Tenderness Extremity: positive: Normal Inspection. negative: Tender, Coldness, Swelling, Calf Tenderness Integumentary: positive: Normal Color, Dry, Warm Neurologic: positive: Respond to painful stimul, Confused, Disoriented. negative: Fully Oriented, Alert, Normal Mood/Affect, Normal Response <Davonte Fritz - Last Filed: 03/19/20 13:55> - Vital Signs Last Vital Signs Temp Pulse Resp BP Pulse Ox 97.5 F L 80 16 160/84 98 03/19/20 11:05 03/19/20 11:05 03/19/20 11:05 03/19/20 11:05 03/19/20 11:05 <Babita Neal - Last Filed: 03/19/20 14:17> ED Treatment Course - LABORATORY CBC & Chemistry Diagram: 03/19/20 12:00 03/19/20 12:00 <Davonte Fritz - Last Filed: 03/19/20 13:55> - LABORATORY CBC & Chemistry Diagram: 03/19/20 12:00 03/19/20 12:00 - ADDITIONAL ORDERS Additional order review: Laboratory Results 03/19/20 03/19/20 13:30 12:00 Sodium 140 Potassium 4.2 Chloride 109 H Carbon Dioxide 23 Anion Gap 9 BUN 16.9 Creatinine 0.8 Est GFR (CKD-EPI)AfAm 96.87 Est GFR (CKD-EPI)NonAf 83.58 Random Glucose 81 Calcium 8.8 Total Bilirubin 0.3 AST 19 ALT 16 Alkaline Phosphatase 71 Total Protein 7.6 Albumin 3.6 Urine Color Yellow Urine Appearance Clear Urine pH 7.0 D Ur Specific [place]upe 1.024 Urine Protein Negative Urine Glucose (UA) Negative Urine Ketones Negative Urine Blood Negative Urine Nitrite Negative Urine Bilirubin Negative Urine Urobilinogen 0.2 Ur Leukocyte Esterase 1+ H Urine WBC (Auto) 73 Urine RBC (Auto) 14 Urine Casts (Auto) 2 U Epithel Cells (Auto) 27 Urine Bacteria (Auto) 148 03/19/20 12:00 RBC 4.45 MCV 97.3 H MCHC 32.2 RDW 14.6 MPV 7.7 Neutrophils % 69.1 Lymphocytes % 23.7 Monocytes % 6.1 Eosinophils % 0.5 Basophils % 0.6 - Medications Given in the ED: ED Medications Discontinued Medications Generic Name Dose Route Start Last Admin Trade Name Javier PRN Reason Stop Dose Admin Lorazepam 2 mg 03/19/20 11:10 03/19/20 12:07 Ativan Injection - IM 03/19/20 11:11 Not Given ONCE ONE Lorazepam 1 mg 03/19/20 12:07 03/19/20 12:10 Ativan Injection - IVPUSH 03/19/20 12:08 1 mg ONCE ONE Administration <Babita Neal - Last Filed: 03/19/20 14:17> Medical Decision Making - Medical Decision Making 03/19/20 12:02 54 y.o. F PMHx seizures s/p neurostim response device in 2017 presenting with seizure. DDx: Seizure, pseudoseizure Labs: WBC 6.6 UA: WNL 03/19/20 13:35 Dispo: D/C home f/u with neurologist 03/19/20 13:55 <Davonte Fritz - Last Filed: 03/19/20 13:55> Discharge - Discharge Information Problems reviewed: Yes - Admission No <Davonte Fritz - Last Filed: 03/19/20 13:55> - Admission No <Babita Neal - Last Filed: 03/19/20 14:17> - Discharge Information Clinical Impression/Diagnosis: Breakthrough seizure, Seizure disorder Condition: Improved - Additional Discharge Information Prescriptions: Nitrofurantoin Monohyd/M-Cryst [Macrobid -] 100 mg PO BID #10 capsule - Patient Discharge Instructions Patient Printed Discharge Instructions: DI for Seizure Disorder -- Adult Additional Instructions: Discharge Instructions: You were seen in the emergency department for a seizure. Your blood tests did not show any concerning findings, but your urine test showed a likely infection. - Please continue to take all of your regular home medications - You were found to have a urinary tract infection (UTI) and were prescribed an antibiotic called Macrobid (nitrofurantoin). This should be taken twice per day for 5 days. Please complete the entire prescription to make sure the infection is fully treated. - It is very important that you call your regular neurologist TODAY to schedule follow up and possibly change your medications. - Seek immediate care for any worsening symptoms, persistent seizures or seizures that do not stop with your home medications, any one-sided neurological symptoms (weakness, numbness, inability to walk, changes in speech, facial droop), if you remain confused for more than 15-20 minutes following a seizure, or if you have any other medical emergency.
--- OUTSIDE RECORDS SUMMARY | 2020-03-19 11:36 | XMS ---
:[address] [facility] Support Name Relationship Address Phone [facility], [facility] Unavailable [address] [place] [address] [facility] [place]available [address] [place] [address] NICK BASILIO DAUGHTER [address] [place] [address] NICK BASILIO Child [address] [place] [address] Re-disclosure Warning The records that you are about to access may contain information from federally- assisted alcohol or drug abuse programs. If such information is present, then the following federally mandated warning applies: This information has been disclosed to you from records protected by federal confidentiality rules (42 CFR part 2). The federal rules prohibit you from making any further disclosure of this information unless further disclosure is expressly permitted by the written consent of the person to whom it pertains or as otherwise permitted by 42 CFR part 2. A general authorization for the release of medical or other information is NOT sufficient for this purpose. The Federal rules restrict any use of the information to criminally investigate or prosecute any alcohol or drug abuse patient.The records that you are about to access may contain highly sensitive health information, the redisclosure of which is protected by Article 27-F of the [place] State Public Health law. If you continue you may haveaccess to information: Regarding HIV / AIDS; Provided by facilities licensed or operated by the [facility] Office of Mental Health; or Provided by the [facility] Office for People With Developmental Disabilities. If such information is present, then the following [facility] mandated warning applies: This information has been disclosed to you from confidential records which are protected by state law. State law prohibits you from making any further disclosure of this information without the specific written consent of the person to whom it pertains, or as otherwise permitted by law. Any unauthorized further disclosure in violation of state law may result in a fine or retirement sentence or both. A general authorization for the release of medical or other information is NOT sufficient authorization for further disclosure. Medications Medication Brand Start Product Dose Route Administrative Pharmacy [facility] Indications Reaction Description Data Name Date Form Instructions Instructions Source(s) Azithromyci AZITHr 1 complet Justin nt n 250 MG omycin ed Pretty Oral Tablet 250 mg Medica l AZITHromyci Tablet Center n 250 mg , Tablet, Ordere Ordered By: d By: aniya Rasmussen MDDirection SaintJ s: 1 tablet marlene, oral daily MDDire ctions : 1 tablet oral daily Insurance Providers Payer name Policy type Policy ID Covered Covered green party's Policy P shantanu / Coverage green party ID relationship to [employer] ormation type gonsalez LOCAL [id number] - [id number] [facility] Social History Code Duration Value Status Description Data Source(s ) Smoking 07/01/2018 Denies Ever completed Denies Ever Smoked [place] 10:50:00 AM EST Smoked Medical C enter Smoking 07/01/2018 Denies Ever completed Denies Ever Smoked [place] 10:44:00 AM EST Smoked Medical C enter Smoking 07/01/2018 Denies Ever completed Denies Ever Smoked [place] 10:06:00 AM EST Smoked Medical C enter Vital Signs ID Date Data Source UNK Name Value Range Interpretation Code Description Data Source(s) Body weight 127.509265 127.273776 kg [facility] Measured kg [facility] Body temperature 37.240734 37.965091 Richa [facility] Respiratory rate 16 /min 16 /min [facility] Oxygen saturation 98 % 98 % [facility] in Arterial blood [facility] by Pulse oximetry Heart rate 78 /min 78 /min [facility] Body height 162.006247 162.398971 cm [facility] cm Medical [place] Diastolic blood 79 mm[Hg] 79 mm[Hg] [facility] pressure Medical Center Systolic blood 164 mm[Hg] 164 mm[Hg] [facility] pressure [facility] Body mass index 48.2 kg/m2 48.2 kg/m2 [facility] (BMI) [Ratio] Medical [facility] Patient Treatment Plan of Care Planned Activity Planned Date Details Description Data Source (s) Azithromycin 250 MG Oral Justin [facility]
[2020-03-19] MEDS ORDERED: LORazepam 2 MG/ML SDV VIAL ONE (11:51)
--- NOTE | 2020-03-19 12:14 | PDOC ---
Attending Attestation - Resident Resident Name: Azjose alfredoDavonte - ED Attending Attestation I have performed the following: I have examined & evaluated the patient, The case was reviewed & discussed with the resident, I agree w/resident's findings & plan - HPI HPI: 03/19/20 12:09 54-year-old female employee at [employer] with history of difficult to control seizures on 2 antiepileptics status post neurostimulator implantation still with breakthrough seizures on occasion presents now from [employer] [facility] during a shift with seizures. Patient was given Versed 10 mg IM by EMS, here with focal arm seizures/shaking, slightly postictal but occasionally conversant. Reports compliance with her medications, denies any infectious or dehydration complaints of late or any other known triggers. - Physicial Exam PE: 03/19/20 12:10 Afebrile, vital signs stable Patient is alert and conversant, following commands Occasional seizure-like activity of both arms, right worse than left. Otherwise neurologically nonfocal exam - Critical Care Time Total Critical Care Time: 30 Critical Care Statement: The care of this patient involved high complexity decision making to prevent further life threatening deterioration of the patient's condition and/or to evaluate & treat vital organ system(s) failure or risk of failure. - Medical Decision Making 03/19/20 12:11 54-year-old female with history of difficult to control seizures presents with at generalized tonic-clonic seizure at work today, now with partial arm seizure versus pseudoseizure in the setting of additional benzodiazepines. Discussed with patient's neurologist at [facility], who knows the patient very well, who states this is typical of patient's breakthrough seizures, typically resolved with benzodiazepines. Given the ongoing partial seizure (question pseudoseizure), additional Ativan given IV after arrival Check labs to rule out metabolic or infectious etiology Monitor and reassess, disposition accordingly. Similar presentation last month, seizures resolved after medications in the ED, and the patient was able to be discharged home. 03/19/20 13:34 labs wnl. pt at baseline and feels well. no further sz activity. ua pending, then dispo 03/19/20 14:27 ua with elevated WBC and leukest, will treat empirically with macrobid. ucx sent Heart Score/ECG Review #1 ECG reviewed & interpreted by me at: 11:05 General ECG Interpretation: Sinus Rhythm, Normal Rate (76), Normal Intervals ([id number]), No acute ischemic changes Discharge - Discharge Information Problems reviewed: Yes Clinical Impression/Diagnosis: Breakthrough seizure, Seizure disorder Condition: Improved - Additional Discharge Information Prescriptions: Nitrofurantoin Monohyd/M-Cryst [Macrobid -] 100 mg PO BID #10 capsule - Follow up/Referral - Patient Discharge Instructions Patient Printed Discharge Instructions: DI for Seizure Disorder -- Adult Additional Instructions: Discharge Instructions: You were seen in the emergency department for a seizure. Your blood tests did not show any concerning findings, but your urine test showed a likely infection. - Please continue to take all of your regular home medications - You were found to have a urinary tract infection (UTI) and were prescribed an antibiotic called Macrobid (nitrofurantoin). This should be taken twice per day for 5 days. Please complete the entire prescription to make sure the infection is fully treated. - It is very important that you call your regular neurologist TODAY to schedule follow up and possibly change your medications. - Seek immediate care for any worsening symptoms, persistent seizures or seizures that do not stop with your home medications, any one-sided neurological symptoms (weakness, numbness, inability to walk, changes in speech, facial droop), if you remain confused for more than 15-20 minutes following a seizure, or if you have any other medical emergency. - Post Discharge Activity
[2020-03-19 12:50] LABS: BASO % 0.6 % (0-2.0); EOS % 0.5 % (0-4.5); HEMATOCRIT 43.3 % (32.4-45.2); HEMOGLOBIN 13.9 GM/dL (10.7-15.3); LYMPH % 23.7 % (8-40); MCH 31.3 pg (25.7-33.7); MCHC 32.2 g/dl (32.0-36.0); MEAN CELL VOLUME 97.3 fl (80-96); MEAN PLT VOLUME 7.7 fl (7.5-11.1); MONO % 6.1 % (3.8-10.2); NEUT % 69.1 % (42.8-82.8); PLATELET COUNT 338 K/MM3 (134-434); RBC 4.45 M/mm3 (3.60-5.2); RDW 14.6 % (11.6-15.6); WHITE BLOOD COUNT 6.6 K/mm3 (4.0-10.0)
[2020-03-19 12:58] LABS: ALBUMIN 3.6 g/dl (3.4-5.0); BILIRUBIN,TOTAL 0.3 mg/dL (0.2-1); BLOOD UREA NITROGEN 16.9 mg/dL (7-18); CALCIUM 8.8 mg/dL (8.5-10.1); CREATININE 0.8 mg/dL (0.55-1.3); POTASSIUM 4.2 mmol/L (3.5-5.1); TOT PROT 7.6 g/dl (6.4-8.2)
[2020-03-19 13:47] LABS: EPI CELLS 27 /uL (0-25.1); HYALINE CASTS 2 /uL (0-3.1); URINE APPEARANCE CLEAR; URINE BACTERIA 148 /uL (0-1359); URINE BILIRUBIN NEGATIVE (NEGATIVE); URINE COLOR YELLOW; URINE GLUCOSE (UA) NEGATIVE (NEGATIVE); URINE KETONE NEGATIVE (NEGATIVE); URINE LEUK ESTERASE 1+ (NEGATIVE); URINE NITRITE NEGATIVE (NEGATIVE); URINE PROTEIN NEGATIVE (NEGATIVE); URINE RBC 14 /uL (0-23.9); URINE UROBILINOGEN 0.2 mg/dL (0.2-1.0); URINE WBC 73 /uL (0-25.8)
[2020-03-19 14:58] VITALS: BP 136/95; TEMP 98.1
--- NOTE | 2020-03-20 11:02 | EKG ---
Test Reason : Blood Pressure : / mmHG Vent. Rate : 076 BPM Atrial Rate : 076 BPM P-R Int : 176 ms QRS Dur : 086 ms QT Int : 392 ms P-R-T Axes : 052 029 016 degrees QTc Int : 441 ms NORMAL SINUS RHYTHM NONSPECIFIC T WAVE ABNORMALITY in anterior leads ABNORMAL ECG WHEN COMPARED WITH ECG OF 06-FEB-2020 13:41, NO SIGNIFICANT CHANGE WAS FOUND Confirmed by MD Aylin, Chris ([id number]) on 03/20/2020 11:01:37 AM Referred By: Confirmed By:Chris Viera MD
== END 2020-03-19 14:30 | disposition home or self-care (01) ==
LOC: JER 11:03
PROC: 3E033NZ Introduction of Analgesics, Hypnotics, Sedatives into Peripheral Vein, Percutaneous Approach (ICD-10-PCS; principal; 2020-03-19)
DX: G40.509 Epileptic seizures related to external causes, not intractable, without status epilepticus (principal)
CPT/HCPCS: 36415; 80053; 81003; 85025; 93005; 93010; 99291

== ENCOUNTER 2020-06-15 14:46 | Emergency (ER) | payer OTHER ==
[2020-06-15 15:49] VITALS: PULSE 85; TEMP 98; BMI 50.1
[2020-06-15] MEDS ORDERED: ACETAMINOPHEN 500 MG TABLET (FP) PO ONE (17:43)
[2020-06-15] MEDS ORDERED: ACETAMINOPHEN 500 MG TABLET (FP) ONE (17:56)
[2020-06-15 19:04] LABS: PLATELET COUNT 331 K/MM3 (134-434)
[2020-06-15 19:12] LABS: EOS % 0.7 % (0-4.5); HEMATOCRIT 38.3 % (32.4-45.2); HEMOGLOBIN 12.7 GM/dL (10.7-15.3); LYMPH % 17.8 % (8-40); MCH 31.6 pg (25.7-33.7); MCHC 33.1 g/dl (32.0-36.0); MEAN CELL VOLUME 95.6 fl (80-96); MEAN PLT VOLUME 8.8 fl (7.5-11.1); MONO % 8.2 % (3.8-10.2); NEUT % 72.3 % (42.8-82.8); RBC 4.01 M/mm3 (3.60-5.2); RDW 14.1 % (11.6-15.6); WHITE BLOOD COUNT 14.8 K/mm3 (4.0-10.0)
[2020-06-15 20:09] LABS: CHLORIDE 105 mmol/L (98-107); POTASSIUM 4.2 mmol/L (3.5-5.1); SODIUM 138 mmol/L (136-145)
[2020-06-15 20:13] LABS: ALBUMIN 3.6 g/dl (3.4-5.0); ANION GAP 6 MMOL/L (8-16); BLOOD UREA NITROGEN 12.2 mg/dL (7-18); CALCIUM 9.4 mg/dL (8.5-10.1); CO2 28 mmol/L (21-32); GLUCOSE,RANDOM 85 mg/dL (74-106)
[2020-06-15 20:15] LABS: CREATININE 0.9 mg/dL (0.55-1.3); SGOT/AST 13 U/L (15-37); SGPT/ALT 17 U/L (13-61)
[2020-06-15 20:17] LABS: BILIRUBIN,TOTAL 0.3 mg/dL (0.2-1); TOT PROT 7.6 g/dl (6.4-8.2)
[2020-06-15 20:18] LABS: ALK PHOS 90 U/L (45-117)
[2020-06-15] MEDS ORDERED: LORazepam 0.5 MG TABLET PO ONE (20:41)
[2020-06-15] MEDS ORDERED: LORazepam 0.5 MG TABLET ONE (20:47)
[2020-06-15 20:58] VITALS: BP 154/60
== END 2020-06-15 20:58 | disposition home or self-care (01) ==
LOC: JER 14:46
DX: M79.10 Myalgia, unspecified site (principal)
CPT/HCPCS: 36415; 71045-TC-FY; 80053; 82550; 84484; 85025; 93005; 93010; 99285-25; C9803; U0003

== ENCOUNTER 2020-09-03 15:32 | Inpatient (IN) | payer OTHER ==
[2020-09-03] MEDS ORDERED: LORazepam 2 MG/ML SDV VIAL IVPUSH ONE (15:47)
[2020-09-03] MEDS ORDERED: LORazepam 2 MG/ML SDV VIAL ONE (15:56)
[2020-09-03 16:28] LABS: BASO % 0.5 % (0-2.0); EOS % 0.2 % (0-4.5); HEMATOCRIT 38.8 % (32.4-45.2); HEMOGLOBIN 12.9 GM/dL (10.7-15.3); LYMPH % 18.2 % (8-40); MCH 31.3 pg (25.7-33.7); MCHC 33.3 g/dl (32.0-36.0); MEAN CELL VOLUME 94.2 fl (80-96); MEAN PLT VOLUME 8.2 fl (7.5-11.1); MONO % 5.6 % (3.8-10.2); NEUT % 75.5 % (42.8-82.8); PLATELET COUNT 434 K/MM3 (134-434); RBC 4.12 M/mm3 (3.60-5.2); RDW 14.6 % (11.6-15.6); WHITE BLOOD COUNT 10.1 K/mm3 (4.0-10.0)
[2020-09-03 16:48] LABS: POTASSIUM 3.5 mmol/L (3.5-5.1)
[2020-09-03 16:50] LABS: CALCIUM 9.7 mg/dL (8.5-10.1)
[2020-09-03 16:51] LABS: ALBUMIN 3.9 g/dl (3.4-5.0); BLOOD UREA NITROGEN 13.7 mg/dL (7-18)
[2020-09-03 16:54] LABS: CREATININE 1.1 mg/dL (0.55-1.3)
[2020-09-03 16:56] LABS: BILIRUBIN,TOTAL 0.4 mg/dL (0.2-1); TOT PROT 7.6 g/dl (6.4-8.2)
[2020-09-04] MEDS ORDERED: LORazepam 2 MG/ML SDV VIAL IVPUSH ONE ×2 (00:11→06:15)
[2020-09-04] MEDS ORDERED: LORazepam 2 MG/ML SDV VIAL ONE ×2 (00:12→22:07)
[2020-09-04 03:39] VITALS: BMI 54.3
[2020-09-04 08:45] LABS: BASO % 0.8 % (0-2.0); EOS % 0.8 % (0-4.5); HEMATOCRIT 37.5 % (32.4-45.2); HEMOGLOBIN 12.4 GM/dL (10.7-15.3); LYMPH % 20.8 % (8-40); MEAN CELL VOLUME 93.9 fl (80-96); MONO % 8.2 % (3.8-10.2); NEUT % 69.4 % (42.8-82.8); PLATELET COUNT 396 K/MM3 (134-434); RDW 14.5 % (11.6-15.6); WHITE BLOOD COUNT 9.7 K/mm3 (4.0-10.0)
[2020-09-04 09:06] LABS: POTASSIUM 3.7 mmol/L (3.5-5.1)
[2020-09-04 09:10] LABS: BLOOD UREA NITROGEN 13.1 mg/dL (7-18)
[2020-09-04 09:11] LABS: CALCIUM 9.6 mg/dL (8.5-10.1); MAGNESIUM 2.1 mg/dL (1.8-2.4)
[2020-09-04 09:14] LABS: CREATININE 0.8 mg/dL (0.55-1.3)
[2020-09-04] MEDS ORDERED: LACOSAMIDE 50 MG TABLET PO SCH ×2 (10:00)
[2020-09-04] MEDS: lamoTRIgine 100 MG TABLET PO SCH ×2 (10:35→22:03)
[2020-09-04] MEDS: ENOXAPARIN NA (PORCINE) 40 MG/0.4 ML DISP.SYRIN SQ SCH ×2 (10:35→22:11)
[2020-09-04 11:51] LABS: MAGNESIUM 2.2 mg/dL (1.8-2.4)
[2020-09-04 11:55] LABS: PHOSPHOROUS 4.1 mg/dL (2.5-4.9)
[2020-09-04] MEDS ORDERED: cloBAZam 10 MG TABLET PO SCH (22:00)
[2020-09-04] MEDS: LACOSAMIDE 50 MG TABLET PO SCH (22:04)
[2020-09-04] MEDS ORDERED: LORazepam 2 MG/ML SDV VIAL IVPUSH STA (22:04)
[2020-09-04] MEDS: cloBAZam 10 MG TABLET PO SCH (22:18)
[2020-09-05 07:55] LABS: BASO % 0.9 % (0-2.0); EOS % 1.5 % (0-4.5); HEMATOCRIT 38.6 % (32.4-45.2); HEMOGLOBIN 12.7 GM/dL (10.7-15.3); LYMPH % 32.6 % (8-40); MCH 31.4 pg (25.7-33.7); MCHC 32.9 g/dl (32.0-36.0); MEAN CELL VOLUME 95.5 fl (80-96); MEAN PLT VOLUME 8.2 fl (7.5-11.1); MONO % 10.3 % (3.8-10.2); NEUT % 54.7 % (42.8-82.8); PLATELET COUNT 362 K/MM3 (134-434); RBC 4.04 M/mm3 (3.60-5.2); RDW 14.8 % (11.6-15.6); WHITE BLOOD COUNT 6.7 K/mm3 (4.0-10.0)
[2020-09-05 08:17] LABS: POTASSIUM 4.3 mmol/L (3.5-5.1)
[2020-09-05] MEDS ORDERED: LORazepam 1 MG TABLET PO PRN (08:37)
[2020-09-05 08:57] LABS: ALBUMIN 3.5 g/dl (3.4-5.0); BLOOD UREA NITROGEN 14.7 mg/dL (7-18); CALCIUM 9.4 mg/dL (8.5-10.1); MAGNESIUM 2.1 mg/dL (1.8-2.4)
[2020-09-05 09:00] LABS: CREATININE 0.9 mg/dL (0.55-1.3); PHOSPHOROUS 4.2 mg/dL (2.5-4.9)
[2020-09-05 09:02] LABS: BILIRUBIN,TOTAL 0.6 mg/dL (0.2-1); TOT PROT 7.1 g/dl (6.4-8.2)
[2020-09-05] MEDS: LACOSAMIDE 50 MG TABLET PO SCH ×2 (10:29→22:22)
[2020-09-05] MEDS: ENOXAPARIN NA (PORCINE) 40 MG/0.4 ML DISP.SYRIN SQ SCH ×2 (10:29→22:16)
[2020-09-05] MEDS: lamoTRIgine 100 MG TABLET PO SCH ×2 (10:29→22:13)
[2020-09-05 12:59] LABS: URINE COLOR YELLOW
[2020-09-05 13:00] LABS: URINE APPEARANCE CLEAR; URINE BILIRUBIN NEGATIVE (NEGATIVE); URINE GLUCOSE (UA) NEGATIVE (NEGATIVE); URINE KETONE NEGATIVE (NEGATIVE)
[2020-09-05 13:01] LABS: EPI CELLS 3.5 /uL (0-25.1); HYALINE CASTS 0.25 /uL (0-3.1); PH,URINE 5.5 (5.0-8.0); URINE BACTERIA 39.1 /uL (0-1359); URINE LEUK ESTERASE TRACE (NEGATIVE); URINE NITRITE NEGATIVE (NEGATIVE); URINE PROTEIN NEGATIVE (NEGATIVE); URINE RBC 2.9 /uL (0-23.9); URINE UROBILINOGEN 0.2 mg/dL (0.2-1.0); URINE WBC 43.4 /uL (0-25.8)
[2020-09-05 13:03] LABS: METHADONE, UR NEGATIVE ng/ml (CUTOFF=300); PHENCYCLIDINE,URINE NEGATIVE ng/ml (CUTOFF=25)
[2020-09-05 13:19] LABS: COCAINE, UR NEGATIVE ng/ml (CUTOFF=300); OPIATES, URI NEGATIVE ng/ml (CUTOFF=300); URINE AMPHETAMINES NEGATIVE ng/ml (CUTOFF=500); URINE BARBITURATES NEGATIVE ng/ml (CUTOFF=200); URINE BENZODIAZEPINES POSITIVE ng/ml (CUTOFF=200)
[2020-09-05] MEDS ORDERED: NITROGLYCERIN 2% OINTMENT - 1GM PACKET TD PRN (18:51)
[2020-09-05] MEDS ORDERED: ONDANSETRON 4 MG/2 ML VIAL IVPUSH PRN (18:58)
[2020-09-05] MEDS: amLODIPine BESYLATE 5 MG TABLET (FP) PO SCH (19:08)
[2020-09-05] MEDS: cloBAZam 10 MG TABLET PO SCH (22:25)
[2020-09-06 08:14] LABS: EOS % 1.2 % (0-4.5); HEMATOCRIT 39.5 % (32.4-45.2); HEMOGLOBIN 13.2 GM/dL (10.7-15.3); LYMPH % 32.3 % (8-40); MCH 31.8 pg (25.7-33.7); MCHC 33.5 g/dl (32.0-36.0); MEAN PLT VOLUME 7.9 fl (7.5-11.1); MONO % 10.8 % (3.8-10.2); NEUT % 54.7 % (42.8-82.8); PLATELET COUNT 383 K/MM3 (134-434); RBC 4.16 M/mm3 (3.60-5.2); RDW 14.8 % (11.6-15.6); WHITE BLOOD COUNT 7.1 K/mm3 (4.0-10.0)
[2020-09-06 08:35] LABS: POTASSIUM 4.3 mmol/L (3.5-5.1)
[2020-09-06 08:40] LABS: ALBUMIN 3.5 g/dl (3.4-5.0); CALCIUM 9.3 mg/dL (8.5-10.1)
[2020-09-06 08:41] LABS: BLOOD UREA NITROGEN 12.9 mg/dL (7-18); MAGNESIUM 2.2 mg/dL (1.8-2.4)
[2020-09-06 08:44] LABS: BILIRUBIN,TOTAL 0.4 mg/dL (0.2-1); PHOSPHOROUS 4.2 mg/dL (2.5-4.9); TOT PROT 7.2 g/dl (6.4-8.2)
[2020-09-06 09:05] VITALS: BP 152/86; PULSE 82; TEMP 97.9
[2020-09-06] MEDS: amLODIPine BESYLATE 5 MG TABLET (FP) PO SCH (10:00)
[2020-09-06] MEDS: LACOSAMIDE 50 MG TABLET PO SCH (10:00)
[2020-09-06] MEDS: ENOXAPARIN NA (PORCINE) 40 MG/0.4 ML DISP.SYRIN SQ SCH (10:01)
[2020-09-06] MEDS: lamoTRIgine 100 MG TABLET PO SCH (10:01)
== END 2020-09-06 16:18 | disposition home or self-care (01) | DRG 101 ==
LOC: JER 15:32 → JERBED 21:19 → J6WEST-2 09-04 02:49
PROVIDERS: ADMIT Internal Medicine; ATTEND Student in an Organized Health Care Education/Training Program
DX: G40.909 Epilepsy, unspecified, not intractable, without status epilepticus (principal); Z68.43 Body mass index [BMI] 50.0-59.9, adult; E66.01 Morbid (severe) obesity due to excess calories; Z88.0 Allergy status to penicillin; I10 Essential (primary) hypertension; G93.81 Temporal sclerosis
CPT/HCPCS: 36415; 70450-TC; 70553-TC; 80048; 80053; 80175; 80307; 81003; 83735; 84100; 85025; 87040; 99285-25; C9803; G0480; U0003

== ENCOUNTER 2020-11-10 10:57 | Emergency (ER) | payer OTHER ==
[2020-11-10 11:07] VITALS: BP 159/81; PULSE 60; TEMP 98; BMI 51.6
[2020-11-10] MEDS ORDERED: KETOROLAC TROMETHAMINE 30 MG/1 ML VIAL IM ONE (11:31)
[2020-11-10] MEDS ORDERED: KETOROLAC TROMETHAMINE 30 MG/1 ML VIAL ONE (11:46)
== END 2020-11-10 12:11 | disposition home or self-care (01) ==
LOC: JERFT 10:57 → JER 10:57 → JERFT 12:11
PROC: 3E0233Z Introduction of Anti-inflammatory into Muscle, Percutaneous Approach (ICD-10-PCS; principal; 2020-11-10)
DX: M25.562 Pain in left knee (principal); G89.29 Other chronic pain
CPT/HCPCS: 99284-25

== ENCOUNTER 2021-11-26 12:03 | Emergency (ER) | payer OTHER ==
[2021-11-26 12:47] VITALS: TEMP 97.9; BMI 49.4
[2021-11-26] MEDS ORDERED: ACETAMINOPHEN 1000 MG/100 ML BAG IVPB ONE (12:56)
[2021-11-26] MEDS ORDERED: ACETAMINOPHEN INJECTION 100 ML IVPB ONE (13:07)
[2021-11-26] MEDS ORDERED: ACETAMINOPHEN 325 MG TABLET (FP) PO ONE (13:50)
[2021-11-26] MEDS ORDERED: ACETAMINOPHEN 325 MG TABLET (FP) ONE (13:57)
[2021-11-26 14:39] LABS: ALBUMIN 3.6 g/dl (3.4-5.0); BLOOD UREA NITROGEN 11.2 mg/dL (7-18); CALCIUM 9.5 mg/dL (8.5-10.1); MAGNESIUM 2.1 mg/dL (1.8-2.4)
[2021-11-26 14:42] LABS: CREATININE 0.9 mg/dL (0.55-1.3)
[2021-11-26 14:46] LABS: BILIRUBIN,TOTAL 0.2 mg/dL (0.2-1); TOT PROT 7.1 g/dl (6.4-8.2)
[2021-11-26 15:11] VITALS: BP 171/78; PULSE 64
== END 2021-11-26 15:11 | disposition left against medical advice (07) ==
LOC: JER 12:03
DX: R00.2 Palpitations (principal)
CPT/HCPCS: 36415; 71045-TC-FY; 80053; 83735; 84439; 84443; 93005; 93010; 99285-25

== ENCOUNTER 2022-12-05 06:38 | Emergency (ER) | payer OTHER ==
[2022-12-05 06:54] VITALS: BMI 53.8
[2022-12-05] MEDS ORDERED: KETOROLAC TROMETHAMINE 30 MG/1 ML VIAL IM ONE (07:36)
[2022-12-05] MEDS ORDERED: KETOROLAC TROMETHAMINE 30 MG/1 ML VIAL ONE (07:49)
[2022-12-05 08:25] VITALS: BP 137/90; PULSE 61; RESP 16; TEMP 97.9
== END 2022-12-05 08:55 | disposition home or self-care (01) ==
LOC: JER 06:38
PROC: 3E0233Z Introduction of Anti-inflammatory into Muscle, Percutaneous Approach (ICD-10-PCS; principal; 2022-12-05)
DX: M25.562 Pain in left knee (principal); I10 Essential (primary) hypertension
CPT/HCPCS: 99284-25

== ENCOUNTER 2022-12-21 00:57 | Emergency (ER) | payer OTHER ==
[2022-12-21 01:11] VITALS: BP 170/94; PULSE 51; RESP 20; TEMP 97.8; BMI 53.1
[2022-12-21] MEDS ORDERED: KETOROLAC TROMETHAMINE 30 MG/1 ML VIAL IM ONE (02:27)
[2022-12-21] MEDS ORDERED: KETOROLAC TROMETHAMINE 30 MG/1 ML VIAL ONE (02:32)
== END 2022-12-21 02:55 | disposition home or self-care (01) ==
LOC: JER 00:57
PROC: 3E0233Z Introduction of Anti-inflammatory into Muscle, Percutaneous Approach (ICD-10-PCS; principal; 2022-12-21)
DX: M25.561 Pain in right knee (principal); M25.571 Pain in right ankle and joints of right foot; G89.29 Other chronic pain
CPT/HCPCS: 99284-25

== ENCOUNTER 2022-12-26 14:56 | Emergency (ER) | payer OTHER ==
[2022-12-26 15:07] VITALS: RESP 20; BMI 52.9
[2022-12-26 17:18] LABS: BASO % 0.9 % (0-2.0); HEMATOCRIT 36.5 % (32.4-45.2); HEMOGLOBIN 12.1 GM/dL (10.7-15.3); LYMPH % 20.2 % (8-40); MCH 30.7 pg (25.7-33.7); MEAN CELL VOLUME 93.2 fl (80-96); MEAN PLT VOLUME 8.2 fl (7.5-11.1); MONO % 6.7 % (3.8-10.2); NEUT % 71.2 % (42.8-82.8); PLATELET COUNT 400 10^3/uL (134-434); RBC 3.92 M/mm3 (3.60-5.2); RDW 14.5 % (11.6-15.6); WHITE BLOOD COUNT 10.1 K/mm3 (4.0-10.0)
[2022-12-26 17:53] LABS: EPI CELLS 9 /uL (0-25.1); HYALINE CASTS 0 /uL (0-3.1); PH,URINE 6.5 (5.0-8.0); URINE APPEARANCE CLEAR; URINE BACTERIA 42 /uL (0-1359); URINE BILIRUBIN NEGATIVE (NEGATIVE); URINE COLOR YELLOW; URINE GLUCOSE (UA) NEGATIVE (NEGATIVE); URINE KETONE NEGATIVE (NEGATIVE); URINE LEUK ESTERASE TRACE (NEGATIVE); URINE NITRITE NEGATIVE (NEGATIVE); URINE PROTEIN NEGATIVE (NEGATIVE); URINE RBC 19 /uL (0-23.9); URINE UROBILINOGEN 0.2 mg/dL (0.2-1.0); URINE WBC 19 /uL (0-25.8)
[2022-12-26 18:35] VITALS: TEMP 97.6
[2022-12-26 18:55] VITALS: BP 174/84; PULSE 54
[2022-12-26 19:12] LABS: POTASSIUM 4.8 mmol/L (3.5-5.1)
[2022-12-26 19:14] LABS: ALBUMIN 3.9 g/dl (3.4-5.0); CALCIUM 9.2 mg/dL (8.5-10.1)
[2022-12-26 19:15] LABS: BLOOD UREA NITROGEN 18.2 mg/dL (7-18)
[2022-12-26 19:18] LABS: CREATININE 0.9 mg/dL (0.55-1.3)
[2022-12-26 19:19] LABS: BILIRUBIN,TOTAL 0.4 mg/dL (0.2-1); TOT PROT 7.4 g/dl (6.4-8.2)
[2022-12-26] MEDS ORDERED: LORazepam 2 MG TABLET PO ONE (20:01)
[2022-12-26] MEDS ORDERED: LORazepam 2 MG/ML SDV VIAL IM ONE (20:04)
== END 2022-12-26 20:43 | disposition home or self-care (01) ==
LOC: JER 14:56
PROC: 3E023GC Introduction of Other Therapeutic Substance into Muscle, Percutaneous Approach (ICD-10-PCS; principal; 2022-12-26)
DX: R56.9 Unspecified convulsions (principal)
CPT/HCPCS: 36415; 70450-TC; 71045-TC-FY; 80053; 80175; 81003; 83605; 85025; 87086; 93005; 93010; 99285-25; G0480